=== PATIENT | female | born 1955 | race Caucasian/White ===

== ENCOUNTER → 2018-04-05 10:45 | Outpatient (CLI) | payer OTHER, SELFPAY ==
--- NOTE | 2018-04-05 | DI.MG.S_ITS ---
BILATERAL DIGITAL SCREENING MAMMOGRAM 3D/2D WITH CAD: 04/05/2018 CLINICAL: Routine screening. Comparison is made to exams dated: 10/20/2016 mammogram, 04/14/2016 mammogram, and 03/31/2016 mammogram - [facility]. The tissue of both breasts is predominantly fatty. Current study was also evaluated with a Computer Aided Detection (CAD) system. No significant masses, calcifications, or other findings are seen in either breast. There has been no significant interval change. IMPRESSION: NEGATIVE There is no mammographic evidence of malignancy. A 1 year screening mammogram is recommended. This exam was interpreted at Station ID: [id number]. NOTE: For mammograms, a report in lay terms will be sent to the patient. Approximately 15% of breast malignancies will not be visualized mammographically. In the management of a palpable breast mass, a negative mammogram must not discourage biopsy of a clinically suspicious lesion. Electronically Signed By: Emily fritz/ishan:04/05/2018 13:30:56 letter sent: Normal Exam ACR BI-RADS Category 1: Negative [id number]
== END ==
PROVIDERS: Visit Provider Internal Medicine
DX: Z12.31 Encounter for screening mammogram for malignant neoplasm of breast (principal)
CPT/HCPCS: 77063; 77067

== ENCOUNTER → 2018-07-30 13:01 | Outpatient (CLI) | payer OTHER, MEDICAID, SELFPAY ==
[2018-07-30 13:13] LABS: RBC Urine None Seen (0-5/HPF)
[2018-07-30 14:25] LABS: Add Manual Diff / Slide Review NO; Basophils Percent Auto 0.3 % (0-2); Eosinophils Percent Auto 1.8 % (2-4); Hematocrit 44.5 % (36-46); Lymphocytes Percent Auto 23.7 % (25-40); Mean Corpuscular HGB Conc 33.6 % (30-36); Mean Corpuscular Hemoglobin 30.2 PG (26-34); Mean Corpuscular Volume 89.9 fL (80-100); Monocytes Percent Auto 5.2 % (3-14); Neutrophils Absolute Auto 5400 /uL (3000-5900); Platelet Count 308 X10^3/uL (150-400); Red Blood Cell Count 4.95 X10^6/uL (4.0-5.2); Red Cell Distribution Width 13.2 % (11.6-14.8); White Blood Cell Count 7.8 X10^3/uL (4.5-11.0)
[2018-07-30 14:48] LABS: Hemoglobin A1C% w Est Avg Glu 5.3 % (4.0-6.0)
[2018-07-30 15:06] LABS: Appearance Urine UA CLEAR; Bilirubin Urine UA NEGATIVE (NEGATIVE); Color Urine UA YELLOW; Glucose Urine UA NEGATIVE (Normal); Ketones Urine UA TRACE (NEGATIVE); Leukocyte Esterase Urine UA NEGATIVE (NEGATIVE); Nitrite Urine UA POSITIVE (Negative); Occult Blood Urine UA NEGATIVE (Negative); Protein Urine UA TRACE (Negative); Specific Gravity Urine UA >=1.030 (1.000-1.035); Urobilinogen Urine UA 0.2 E.U./dL (0.2)
[2018-07-30 15:33] LABS: BUN Creatinine Ratio 28.6 (6-22); Blood Urea Nitrogen 20 mg/dL (7-17); Calcium 9.5 mg/dL (8.4-10.2); Carbon Dioxide 25 mmol/L (22-32); Chloride 103 mmol/L (98-107); Estimated Glomerular Filt Rate > 60.0 mL/min (>60); Glucose 108 mg/dL (80-110); HEMOLYSIS < 15 (0-50); Sodium 144 mmol/L (137-145)
[2018-07-30 15:36] LABS: Transferrin 224 mg/dL (206-381)
[2018-07-30 15:51] LABS: Squamous Epithelial Cell Urine 5-10 /HPF; WBC Urine 1-5/HPF (0-5/HPF)
[2018-07-30 15:52] LABS: Bacteria Urine Many (>30); Culture Indicated Urine Cult Not Indicated; Hyaline Casts Urine 0-1/LPF
== END ==
PROVIDERS: Family Provider Internal Medicine; Visit Provider Orthopaedic Surgery
DX: Z01.818 Encounter for other preprocedural examination (principal); M25.561 Pain in right knee; Z01.812 Encounter for preprocedural laboratory examination; D64.9 Anemia, unspecified; R73.9 Hyperglycemia, unspecified; N39.0 Urinary tract infection, site not specified
CPT/HCPCS: 36415; 80048; 81001; 83036; 84466; 85025; 93005; 93010

== ENCOUNTER → 2018-08-11 09:46 | Outpatient (CLI) | payer OTHER, MEDICAID, SELFPAY ==
[2018-08-11 09:56] LABS: Bacteria Urine None Seen; RBC Urine None Seen (0-5/HPF)
[2018-08-11 10:50] LABS: Appearance Urine UA CLEAR; Bilirubin Urine UA NEGATIVE (NEGATIVE); Color Urine UA YELLOW; Glucose Urine UA NEGATIVE (Normal); Ketones Urine UA NEGATIVE (NEGATIVE); Leukocyte Esterase Urine UA TRACE (NEGATIVE); Nitrite Urine UA NEGATIVE (Negative); Occult Blood Urine UA NEGATIVE (Negative); Protein Urine UA NEGATIVE (Negative); Specific Gravity Urine UA <=1.005 (1.000-1.035); Urobilinogen Urine UA 0.2 E.U./dL (0.2); pH Urine UA 6.5 (4.5-8.0)
[2018-08-11 11:02] LABS: Culture Indicated Urine Cult Not Indicated; Squamous Epithelial Cell Urine 0-1 /HPF; WBC Urine 0-1/HPF (0-5/HPF)
== END ==
PROVIDERS: Family Provider Internal Medicine; PCP Internal Medicine; Visit Provider Physician Assistant Surgical
DX: N39.0 Urinary tract infection, site not specified (principal)
CPT/HCPCS: 81001

== ENCOUNTER 2018-08-24 13:36 | Observation (INO) | payer OTHER, MEDICAID, SELFPAY ==
[2018-08-10 09:54] VITALS: BMI 38.2
[2018-08-23] VITALS (16 sets, daily range): BP systolic 117–146; BP diastolic 68–95; PULSE 44–89; RESP 11–21; TEMP 36.1–36.9; O2SAT 82–98; BMI 38.2
--- NOTE | 2018-08-23 06:00 | DI.RAD.S_ITS ---
PROCEDURE: XR KNEE RT 1TO2V INDICATIONS: total right knee TECHNIQUE: 2 view(s) of the knee acquired. COMPARISON: None. FINDINGS: Bones: Patient is status post knee joint arthroplasty. Hardware components are in expected positions. Visualized bony structures are intact. Soft tissues: Overlying postoperative changes are noted. IMPRESSION: Post right total knee arthroplasty changes with anatomic right knee alignment. Dictated by: Fabian Herron M.D. on 08/23/2018 at 16:12 Approved by: Fabian Herron M.D. on 08/23/2018 at 16:12
[2018-08-23] MEDS: CELECOXIB 200 MG CAPSULE PO (11:00)
[2018-08-23] MEDS: PREGABALIN 75 MG CAPSULE PO (11:01)
[2018-08-23] MEDS: LACTATED RINGERS 1,000 ML 42 ML IV ×2 (11:30→14:08)
--- NOTE | 2018-08-23 12:29 | PM.PREOP ---
Pre-operative Note Interval Note Pre-op Check: Yes History & Physical Reviewed by Physician and Yes Exam Performed Changes: No
[2018-08-23] MEDS: MIDAZOLAM 2 MG/2 ML VIAL IV (12:43)
[2018-08-23] MEDS: fentaNYL 100 MCG/2 ML INJ 50 MCG IV (12:43)
--- NOTE | 2018-08-23 12:59 | SUR.PREOP ---
Block start time [1246 ] . Monitoring initiated and maintained throughout procedure. Oxygen and medications given per anesthesiologist instructions. Patient remained stable throughout procedure, no adverse reactions noted. Block end time [].1251
[2018-08-23] MEDS: CEFAZOLIN VIAL 3 GM in SODIUM CHLORIDE 0.9% 100 ML 200 ML IV (13:30)
--- NOTE | 2018-08-23 13:46 | SUR.OPER ---
Supine on padded OR bed. Pillow under head, arms secured on padded armboards <90 degree abduction. Safety belt across torso. Non-operative leg secured with tape over blanket over lower leg. Operative leg secured in [place].
[2018-08-23] MEDS: BUPIVACAINE 0.25% W/ EPI VIAL 60 ML INJ (13:52)
[2018-08-23] MEDS: BUPIVACAINE LIPOSOME 266 MG/20 ML VIAL INJ (13:52)
[2018-08-23] MEDS: MORPHINE 4 MG/ML INJ INJ (13:55)
[2018-08-23] MEDS: TRANEXAMIC ACID 1,000 MG VIAL 1000 MG INJ ×2 (13:56→14:56)
--- NOTE | 2018-08-23 15:12 | P.OP_ITS ---
Operative Date/Time/Diagnoses Date of procedure: 08/23/18 Time of procedure: 15:00 Pre-op diagnosis: Right knee osteoarthritis Post-op diagnosis: same Procedure & Clinicians Procedure: Right total knee replacement Same procedure as scheduled: Yes Indications: The patient has had progressively worsening right knee pain with radiographic changes consistent with arthritis. Non-operative management has failed and the patient has requested total knee replacement. The risks, benefits and alternatives to surgery were discussed with the patient prior to proceeding. Risks discussed included, but were not limited to, failure to relieve pain, stiffness, infection, nerve damage, deep venous thrombosis, pulmonary embolism, stroke, coma, heart attack, permanent paralysis and , as well as the potential need for eventual revision of the prosthetic. Surgeon: Sidney Higgins News Internship: Sharon Bloom Click Yes if Unassisted: No Anesthesia Type: General, Peripheral nerve block and Local Operative Notes Findings: Severe tricompartmental osteoarthritis with large osteophytes Closure Type: primary Specimen(s): none sent Implants & Drains: Implants used in this procedure were manufactured by the [employer] and [employer] and included the BCS II Journey total knee replacement with a size 5 right Oxinium femur, 5 right non porous tibial base plate, 13 mm cross-linked polyethylene BCS II tibial insert and a 35 mm oval Linda II patella. Applied: implant(s) Estimated Blood Loss (mL): 100 Blood products transfused: none Tourniquet time (min): 60 Procedure in detail: The patient was seen in the pre-operative area, where the patient identified the right knee as the operative site and this was marked with my initials. The patient received pre-operative antibiotics, and was taken to the operating room and placed on the operative table in the supine position. After satisfactory anesthesia, a pharmacy cashier out was performed. The right leg was encircled with a tourniquet about the proximal thigh, and the leg was prepared from the toes to the tourniquet with ChloroPrep in the usual fashion and draped through sterile drapes. The leg was elevated and exsanguinated with Eschmark bandage and the tourniquet inflated to 250 mmHg pressure. The knee was approached through an approximately 18 cm incision centered over the patella and carried into the knee through a medial parapatellar arthrotomy. The anterior osteophytes and soft tissues were removed. The rotational landmarks of [place]'s line and the transepicondylar axis were marked on the femur with electrocautery, and intramedullary guide holes for the femur and tibia were created. The distal femoral cut was made in 6 degrees of valgus using the intramedullary guide at the +2 cut setting due to a pre-existing flexion contracture. The proximal tibial cut was then made using the intramedullary guide, taking 9 mm of bone off the less involved side. The extension gap was checked and the rotation of the femoral component confirmed with the gap balancing system. The anterior, posterior and chamfer cuts were then made. The posterior osteophytes and soft tissues were then removed. The posterior capsule was injected with part of a mixture of 50 ml 0.25% Marcaine mixed with 20 ml Exparel and 4 mg of morphine for post-operative pain control. The remainder of this mixture was injected into the capsule and subcutaneous tissues during cement curing. The tibia was prepared with the rotation set by an extra medullary guide. Trial tibial and femoral components were then placed and the intercondylar notch cut through the femoral trial. Range of motion was 0-135 degrees, with good stability throughout the range. The patella was then cut to accommodate the patellar prosthetic. There was no need for a lateral release. The trials were then removed, and the femoral hole plugged with a bone plug. The bone was prepared with pulsatile lavage, and dried with a sponge. Cement was applied and the final prosthetics placed. Excess cement was removed during and after cement curing. After confirming there was no extruded cement posteriorly, the final tibial insert was placed. The knee was copiously irrigated and the tourniquet deflated. Hemostasis was obtained. The capsule was closed with interrupted # 2 polyester suture. The subcutaneous layer was closed with 3-0 Vicryl, and the skin with a running 3-0 V-Lock suture and SteriStrips. An Aquacel Ag dressing was applied and the patient was taken to recovery having tolerated the procedure well. Complications: none Condition: stable Disposition: PACU Plan for aftercare: The patient will be maintained on a standard total knee replacement protocol with weight bearing as tolerated. The patient will receive aspirin and sequential compression devices for DVT prophylaxis. The patient will be discharged home when safe for the home environment.
[2018-08-23] MEDS: HYDROMORPHONE 2 MG INJ 0.5 MG IV ×2 (15:26→15:40)
--- NOTE | 2018-08-23 16:03 | SUR.PHASEI ---
Pt reports pain 3/10 in rt knee. Drowsy, dozing frequently. Sats drop to mid 80s on 2lnc, increase to 95-97% 2lnc with deep breaths.
--- NOTE | 2018-08-23 16:23 | SUR.PHASEI ---
Report called to Anel
--- NOTE | 2018-08-23 16:46 | SUR.PHASEI ---
Pt transferred to the floor with pulse ox. Report given to Shirley. VS stable. Roslyn CDI. NV check wnl. IV saline locked, site wnl. Belongings bag and glasses/case with patient.
[2018-08-23] MEDS: LACTATED RINGERS 1,000 ML 125 ML IV (16:48)
--- NOTE | 2018-08-23 17:11 | PC.NURSE ---
1633 - Patient admitted to room 204 from PACU. Brought to room in bed by PACU nurses. Alert and oriented with pleasant affect. States pain to right knee is 2/10. Able to move all extremities. Jae wrap and aquacel dressing to right knee C/D/I. Oriented to room and call light, Call light within reach.
[2018-08-23] MEDS: HYDROCODONE/ACET 5/325 TABLET 2 TAB PO ×2 (18:03→22:33)
[2018-08-23] MEDS: CEFAZOLIN 2 GM/100 ML FROZ.PIGGY IV (21:05)
[2018-08-23] MEDS: ACETAMINOPHEN 325 MG TABLET 975 MG PO (21:07)
[2018-08-23] MEDS: DOCUSATE 100 MG CAPSULE PO (21:07)
[2018-08-23] MEDS: ASPIRIN EC 81 MG TABLET PO (21:07)
[2018-08-24] MEDS: LACTATED RINGERS 1,000 ML 125 ML IV (01:22)
[2018-08-24] MEDS: HYDROCODONE/ACET 5/325 TABLET 2 TAB PO ×4 (02:31→21:10)
[2018-08-24] MEDS: CEFAZOLIN 2 GM/100 ML FROZ.PIGGY IV (05:47)
[2018-08-24 05:55] VITALS: BP 144/74; PULSE 85; RESP 18; TEMP 36.6; O2SAT 98
[2018-08-24 06:49] LABS: Hematocrit 37.4 % (36-46); Hemoglobin 12.5 g/dL (12.0-16.0)
[2018-08-24 07:35] VITALS: BP 128/89; PULSE 76; RESP 16; TEMP 36.8; O2SAT 98
[2018-08-24 07:44] VITALS: O2SAT 89; O2SAT 98
[2018-08-24] MEDS: MELOXICAM 7.5 MG TABLET 15 MG PO (08:32)
[2018-08-24] MEDS: METOPROLOL ER 50 MG TABLET PO (08:32)
[2018-08-24] MEDS: SERTRALINE 25 MG TABLET PO (08:32)
[2018-08-24] MEDS: DOCUSATE 100 MG CAPSULE PO ×2 (08:32→20:13)
[2018-08-24] MEDS: ASPIRIN EC 81 MG TABLET PO ×2 (08:32→20:15)
--- NOTE | 2018-08-24 08:51 | CM.DANOTE ---
DCP: Case received, EMR reviewed and met with patient. Introduced self and role. DCP template completed with information currently available. Patient is a 62 year old female who admitted yesterday to the care of the hospitalist team, Dr. Higgins. PCP: Dr. Tovar. Payer: confirmed: [facility] [employer]. Patient came to hospital for surgical procedure, Right Total Knee Arthroplasty. Patient has had history of right knee pain. Met with patient in room. Confirmed that she is not , lives [facility] her [facility]. Her daughter lives in [place], and has 7 month old baby, and has a son in [place] with children as well. Stated that she has been independent, and has not had to use a walker or cane. Discussed therapy, and patient if thinking that home health may suit her better, for she stated that it may be difficult for her daughter to take her to outpatient therapy. Patient has not yet been up to work with P.T. P: DCP to continue to follow. Will consult with physical therapy team for best plan for patient. If home health is appropriate, will have to check agencies that will accept her insurance. Marisa Bliss RN/Senior Behavioral Scientist
--- NOTE | 2018-08-24 09:46 | PM.PNPO.1 ---
Subjective Date Patient Seen: 08/24/18 Time Patient Seen: 09:46 Interval history: The patient reports difficulty with pain control. She has satisfactory pain control with Pe Ell but it does not seem to be lasting long enough. She is unable to tolerate oxycodone. She also does not want to try hydromorphone. Exam Vital Signs (past 8 hours): - 08/24/18 05:55 08/24/18 07:35 08/24/18 07:44 Temperature 97.8 F 98.3 F Pulse Rate 85 76 Respiratory Rate 18 16 Blood Pressure 144/74 H 128/89 Pulse Oximetry 98 98 98 Oxygen Delivery Method Room Air Oxygen Flow Rate 3 Narrative Exam Narrative: Right knee wound is dressed with no drainage on the bandage. Calf is soft. Light touch and motion are intact in the right lower extremity. Objective Labs Result Diagrams: 08/24/18 06:32 Labs: Laboratory Results - last 24 hr 08/24/18 06:32 Hgb 12.5 Hct 37.4 Assessment & Plan Post-op Postoperative Procedures Operation Date: 08/23/18 12:30 Actual Procedures Side Surgeon p Total Knee Arthroplasty Right Sidney Higgins MD Postoperative day: 1 Postoperative status: doing well, marginal pain control and anemia Postoperative status narrative: The patient has marginal pain control on Pe Ell. She is very sensitive to the hallucinatory effects of narcotics and does not wish to try anything stronger. We discussed the use of supplementary medications including Tylenol and anti-inflammatories. She has not made and enough progress with therapy to be ready for discharge today. She has a mild, anticipated post hemorrhagic anemia. Postoperative plan: routine post-op care and ambulate Time Spent With Patient less than 15 minutes
--- NOTE | 2018-08-24 09:50 | P.PN_ITS ---
Subjective Date Patient Seen: 08/24/18 Time Patient Seen: 09:46 Interval history: The patient reports difficulty with pain control. She has satisfactory pain control with Niland but it does not seem to be lasting long enough. She is unable to tolerate oxycodone. She also does not want to try hydromorphone. Exam Vital Signs (past 8 hours): - 08/24/18 05:55 08/24/18 07:35 08/24/18 07:44 Temperature 97.8 F 98.3 F Pulse Rate 85 76 Respiratory Rate 18 16 Blood Pressure 144/74 H 128/89 Pulse Oximetry 98 98 98 Oxygen Delivery Method Room Air Oxygen Flow Rate 3 Narrative Exam Narrative: Right knee wound is dressed with no drainage on the bandage. Calf is soft. Light touch and motion are intact in the right lower extremity. Objective Labs Result Diagrams: 08/24/18 06:32 Labs: Laboratory Results - last 24 hr 08/24/18 06:32 Hgb 12.5 Hct 37.4 Assessment & Plan Post-op Postoperative Procedures Operation Date: 08/23/18 12:30 Actual Procedures Side Surgeon p Total Knee Arthroplasty Right Sidney Higgins MD Postoperative day: 1 Postoperative status: doing well, marginal pain control and anemia Postoperative status narrative: The patient has marginal pain control on Niland. She is very sensitive to the hallucinatory effects of narcotics and does not wish to try anything stronger. We discussed the use of supplementary medications including Tylenol and anti-inflammatories. She has not made and enough progress with therapy to be ready for discharge today. She has a mild, anticipated post hemorrhagic anemia. Postoperative plan: routine post-op care and ambulate Time Spent With Patient less than 15 minutes
--- NOTE | 2018-08-24 10:00 | PT.IIE ---
Current Diagnoses Unilateral primary osteoarthritis, right knee (08/23/18) Surgery Performed Operation Date: 08/23/18 12:30 Actual Procedures p Total Knee Arthroplasty(Right) - Sidney Higgins MD Surgical History (Last Updated 08/10/18 @ 10:20 by Jonna Brown, RN) H/O removal of cyst (Acute) History of section (Acute ~1986) History of surgical removal of pilonidal cyst (Acute) History of tonsillectomy and adenoidectomy (Acute) Hx of cholecystectomy (Acute) Hx of umbilical hernia repair (Acute) S/P left rotator cuff repair (Acute) Medical History (Last Updated 08/10/18 @ 10:33 by Jonna Brown RN) Chronic back pain (Acute) Depression (Acute) Easy bruisability (Acute) HTN (hypertension) (Acute) Hamstring injury (Acute) History of hysterectomy (Acute ~06/1994) Numbness and tingling (Acute) Osteoarthritis (Acute) Spinal stenosis (Acute) Physical Therapy Inpatient Evaluation/Re-Eval M1 PT/OT-IP Prior Functional Status Start: 08/24/18 10:16 Freq: NEEDED Status: Active Protocol: Document 08/24/18 12:14 [facility] (Rec: 08/24/18 12:32 [facility] [id number]) Medical Review Prior Functional Status Medical History Reviewed Yes Diet/Fluid Consistency Regular Communication WNL Mobility and Gait no AD but painful and had to use grab bars to get up/down from toilet Activities of Daily Living and IADL's [facility] ADLs Social History Household Members family Living Arrangements House Number of Floors (Floors) One Floor Number of Stairs To Enter/Railing? no KIM Home Environment High Toilet Tub/Shower Home Equipment Front Wheel Walker Straight Cane Grab Bars Near Toilet Grab Bars In Shower Additional Social History Comment Pt has walk in tub that has a built in bench. Pt lives with 14 year old granddgt who will help with meals. Pt's dgt will being staying with her for 1 week. M2 PT-IP Current Condition Start: 08/24/18 10:16 Freq: NEEDED Status: Active Protocol: Document 08/24/18 16:00 [facility] (Rec: 08/24/18 12:32 [facility] [id number]) Physical Therapy Current Condition Current Condition Evaluation Date 08/24/18 Treatment Diagnosis R TKA Weight Bearing Status Weight Bearing Status Weight Bear as Tolerated M3 PT-IP Subjective Start: 08/24/18 10:16 Freq: NEEDED Status: Active Protocol: Document 08/24/18 16:00 [facility] (Rec: 08/24/18 12:32 [facility] [id number]) Subjective Physical Therapy Visit Type Type Initial Evaluation Visit Start Time 09:20 Visit Stop Time 10:05 Total Visit Minutes 45 Number of CLINICAL EDUCATOR Visits 0 Physical Therapy Visit Comments Patient Comments Pt plans to go home and thinks she would be ready tomorrow. Therapy Pain Assessment Pain When Pain Assessed At Rest Pain Present Pain Present Pain Reported M4 PT-IP Mobility and Gait Start: 08/24/18 10:16 Freq: NEEDED Status: Active Protocol: Document 08/24/18 16:00 [facility] (Rec: 08/24/18 12:32 [facility] [id number]) PT-Bed Mobility Assessment Rolling Type of Rolling Log Rolling Level of Assist Contact Guard Assistance Supine to Sit Supine to Sit Minimal Assistance Bedrails Scooting Scooting to Edge of Bed Standby Assistance PT-Transfer Assessment Sit to and From Stand Sit to and from Stand Contact Guard Assistance Equipment Transfer Assistive Device Gait Belt Front Wheeled Walker Orthotic/Prosthetic Devices or Brace: No Transfers Transfer Destination Bedside Commode Transfer Technique Stand Step Pivot Transfer Ability Level of Assist Contact Guard Assistance Comments Mobility Comments Pt stood to transfer to commode then ambulated before returning to chair. Gait Assessment Gait Gait Assistance Required: Contact Guard Assist Distance (Feet) 10 Able to Maintain Weight Bearing Status Yes During Gait Assistive Devices Assistive Device Gait Belt Front Wheeled Walker Orthotic/Prosthetic Devices or Brace: No Gait Deviations General Gait Pattern Decreased Stride Length Flexed Trunk Step-to Gait Factors Limiting Gait Function Factors Limiting Gait Function Decreased Strength Pain Comments Gait Comments Pt able to ambulate small distance with step to gait before sitting in chair d/t pain. PT-Balance Assessment Sitting Balance and Reactions Static Sitting Balance Ability Good Dynamic Sitting Balance Ability Good Standing Balance and Reactions Static Standing Balance Ability Fair Dynamic Standing Balance Ability Fair M5 PT-IP Objective Assessments Start: 08/24/18 10:16 Freq: NEEDED Status: Active Protocol: Document 08/24/18 16:00 [facility] (Rec: 08/24/18 12:32 [facility] [id number]) Orientation Orientation/Cognition Level of Alertness Alert Gross Range of Motion Lower Extremity ROM Assessment Right Impaired Strength Lower Extremity Strength Assessment Right Impaired M6 PT-IP Treatment Start: 08/24/18 10:16 Freq: NEEDED Status: Active Protocol: Document 08/24/18 16:00 [facility] (Rec: 08/24/18 12:32 [facility] [id number]) Physical Therapy Treatment Exercises Exercises Ankle Pumps Education Education Provided Weight Bearing Status Post-Op Packet Safety M7 PT-IP Assessment and Plan Start: 08/24/18 10:16 Freq: NEEDED Status: Active Protocol: Document 08/24/18 16:00 [facility] (Rec: 08/24/18 12:32 [facility] [id number]) PT Summary Assessment and Plan Potential Rehabilitation Potential Good Status of Condition at Evaluation Evolving Summary Impairments Pain ROM Strength Balance Bed Mobility Transfers Gait Activity Tolerance Assessment Summary Pt is 1 day s/p R TKA with motivation to get home tomorrow. She has prepared well with OP PT set up, equipment at home and help at home. She was educated on home set up, moving frequently at home and overall progression. She is likely to cont to improve with PT to be able to return home once stable and safe. Goals Bed Mobility Goal Independent Transfer Goal Standby Assistance Gait Goal Standby Assistance Gait Distance 150 Other Goals STG-indep with HEP in 1 day Days to Meet Goals 3 Frequency of Treatment Frequency Of Treatment Twice a Day Treatment Plan Physical Therapy Treatment Plan Bed Mobility Training Transfer Training Gait Training Therapeutic Exercise Balance Retraining Discharge Planning Neuromuscular Re-ed Manual Therapy Other Recommendations and Next Treatment TKA exercises, progress gait Focus Recommendations To Nursing Amount of Assist Needed 1 Person Assist Discharge Recommendations PT Discharge Recommendations Home with Assistance Outpatient PT
[2018-08-24] MEDS: KETOROLAC 15 MG/ML VIAL IV ×3 (10:59→20:15)
[2018-08-24] MEDS: HYDROCODONE/ACET 10/325 TABLET 2 TAB PO (11:00)
[2018-08-24 11:41] VITALS: BP 112/53; PULSE 66; RESP 16; TEMP 37.2; O2SAT 96
[2018-08-24 15:27] VITALS: BP 118/57; PULSE 67; RESP 21; TEMP 37.1; O2SAT 98
--- NOTE | 2018-08-24 16:08 | PT.IPTN ---
Current Diagnoses Unilateral primary osteoarthritis, right knee (08/23/18) Surgery Performed Operation Date: 08/23/18 12:30 Actual Procedures p Total Knee Arthroplasty(Right) - Sideny Higgins MD Physical Therapy Treatment Note M2 PT-IP Current Condition Start: 08/24/18 10:16 Freq: NEEDED Status: Active Protocol: Document 08/24/18 12:14 [facility] (Rec: 08/24/18 12:32 [facility] [id number]) Physical Therapy Current Condition Current Condition Evaluation Date 08/24/18 Treatment Diagnosis R TKA Weight Bearing Status Weight Bearing Status Weight Bear as Tolerated M3 PT-IP Subjective Start: 08/24/18 10:16 Freq: NEEDED Status: Active Protocol: Document 08/24/18 15:59 [facility] (Rec: 08/24/18 16:08 [facility] [id number]) Subjective Physical Therapy Visit Type Type Treatment Note Visit Start Time 15:19 Visit Stop Time 15:45 Total Visit Minutes 26 Number of COMMUNITY SERVICE TECHNICIAN Visits 1 Physical Therapy Visit Comments Patient Comments Pt pain managed well this afternoon, pt reports. Plan to d/c tomorrow. Patient Goals D/C home tomorrow Therapy Pain Assessment Pain When Pain Assessed During Mobility Pain Present Pain Present Pain Reported Location Right Knee Intensity 2 Scale Used Numeric (1 - 10) Pain Management Techniques Apply Cold Re-positioning Timing of Activity with Medications M4 PT-IP Mobility and Gait Start: 08/24/18 10:16 Freq: NEEDED Status: Active Protocol: Document 08/24/18 15:59 [facility] (Rec: 08/24/18 16:08 [facility] [id number]) PT-Bed Mobility Assessment Scooting Scooting to Edge of Bed Standby Assistance PT-Transfer Assessment Sit to and From Stand Sit to and from Stand Standby Assistance Equipment Transfer Assistive Device Gait Belt Front Wheeled Walker Orthotic/Prosthetic Devices or Brace: No Transfers Transfer Destination Bed Chair Transfer Technique Stand Step Pivot Transfer Ability Level of Assist Standby Assistance Comments Mobility Comments Pt SBA with sit to stands from low chair and EOB. Stand pivot txs with FWW and SBA, min cues for FWW use. Gait Assessment Gait Gait Assistance Required: Contact Guard Assist Distance (Feet) 120 Able to Maintain Weight Bearing Status Yes During Gait Assistive Devices Assistive Device Gait Belt Front Wheeled Walker Orthotic/Prosthetic Devices or Brace: No Gait Deviations General Gait Pattern Decreased Stride Length Flexed Trunk Step-to Gait Factors Limiting Gait Function Factors Limiting Gait Function Decreased Activity Tolerance Decreased Strength Limited Range of Motion Pain Comments Gait Comments Pt able to increase WBing through RLE and increase step length with cues. Tends to wB heavily through UEs but able to correct with cues. Stair Climbing Assessment Comments Stair Climbing Comments P does not hae stairs to enter home or inside of home. M5 PT-IP Objective Assessments Start: 08/24/18 10:16 Freq: NEEDED Status: Active Protocol: Document 08/24/18 12:14 [facility] (Rec: 08/24/18 12:32 [facility] [id number]) Orientation Orientation/Cognition Level of Alertness Alert Gross Range of Motion Lower Extremity ROM Assessment Right Impaired Strength Lower Extremity Strength Assessment Right Impaired M6 PT-IP Treatment Start: 08/24/18 10:16 Freq: NEEDED Status: Active Protocol: Document 08/24/18 15:59 [facility] (Rec: 08/24/18 16:08 [facility] [id number]) Physical Therapy Treatment Exercises Exercises Ankle Pumps Gluteal Sets Quad Sets Seated Knee Flexion/Extension Education Education Provided Weight Bearing Status Post-Op Packet Safety Equipment Issued Equipment Type and Company Pt has FWW and SPC at home, may need elevated toilet seat as she is 8'tall and is using elevated toilet seat here.Does have grab bars in bathroom. M7 PT-IP Assessment and Plan Start: 08/24/18 10:16 Freq: NEEDED Status: Active Protocol: Document 08/24/18 15:59 [facility] (Rec: 08/24/18 16:08 [facility] [id number]) PT Summary Assessment and Plan Potential Rehabilitation Potential Good Status of Condition at Evaluation Stable Summary Impairments Pain ROM Strength Balance Bed Mobility Transfers Gait Activity Tolerance Assessment Summary Reviewed post-op packet and patient understands exercises and importance of frequent movement. Pt has equipment needed and help at home from daughter and granddaughter. Frequency of Treatment Frequency Of Treatment Twice a Day Recommendations To Nursing Amount of Assist Needed 1 Person Assist Discharge Recommendations PT Discharge Recommendations Home Home with Assistance Home Health
--- NOTE | 2018-08-24 17:59 | PC.NURSE ---
Addendum entered by Che Jones R.N. 08/24/18 21:39: Pt had relatively uneventful evening. Med at 2100 for discomfort w/good relief. Condtion remains essentially unchanged. Stable post op course. Call light w/in reach. Continue w/plan of care. Original Note: Pt sitting in chair, Dsg to right knee CDI. Lungs clear, SpO2 97% RA Med at 1600 w/ [place] w/ fair relief. Hl in right hand intact/patent. Stable post op course. Call light w/in reach.
[2018-08-24 19:42] VITALS: BP 124/64; PULSE 67; RESP 19; TEMP 36.6; O2SAT 92
[2018-08-24] MEDS: ACETAMINOPHEN 325 MG TABLET 975 MG PO (20:13)
[2018-08-25 00:26] VITALS: BP 115/67; PULSE 77; RESP 16; TEMP 36.7; O2SAT 98
[2018-08-25] MEDS: HYDROCODONE/ACET 5/325 TABLET 2 TAB PO ×3 (01:13→12:58)
[2018-08-25] MEDS: KETOROLAC 15 MG/ML VIAL IV ×2 (03:30→07:53)
[2018-08-25 05:55] VITALS: BP 130/70; PULSE 86; RESP 16; TEMP 36.8; O2SAT 96
[2018-08-25] MEDS: DOCUSATE 100 MG CAPSULE PO (07:50)
[2018-08-25] MEDS: ASPIRIN EC 81 MG TABLET PO (07:50)
[2018-08-25 07:54] VITALS: BP 119/54; PULSE 81
[2018-08-25] MEDS: SERTRALINE 25 MG TABLET PO (07:54)
[2018-08-25] MEDS: METOPROLOL ER 50 MG TABLET PO (07:54)
--- NOTE | 2018-08-25 07:55 | PM.DS.1 ---
History of Present Illness Date Patient Seen: 08/25/18 Time Patient Seen: 07:55 Chief complaint: [id number] RIGHT TOTAL KNEE ARTHROPLASTY *OPB* Narrative: Hospital day 3, postop day 2 following right total knee arthroplasty by Dr. Higgins. Patient states she is doing better today. Pain is better controlled with [place] and ketorolac. Did well with physical therapy yesterday. Still has difficulty lifting her right leg actively. Patient is desiring to go home today. She does have physical therapy starting on 08/30/2018. Discharge Providers Primary care physician: Cyndie Tovar MD Consults: 08/23/18 16:37 Consult to Discharge Planning Routine Comment: Consult to Physical Therapy Evaluate & Treat Comment: Physician Instructions: postop TKA protocol Discharge provider: German Street PA-C Discharge Date: 08/25/18 Summary Discharge Diagnosis: Status post right total knee arthroplasty Hospital Course: Patient brought to hospital on 08/23/18 for above noted surgery. She remained stable postoperatively. She did have pain control issues initially and then Ketoralac IV was started which helped a lot. Progressed with physical therapy. Ready for discharge home on postop day 2. Status at Discharge Cognitive/behavioral status at discharge: Alert, oriented no acute distress. Functional status at discharge: uses cane/walker Overall status at discharge: patient is progressing back to baseline Time Spent with Patient Less than 30 minutes Exam Vital Signs (past 8 hours): - 08/25/18 00:26 08/25/18 05:55 08/25/18 07:54 Temperature 98.0 F 98.2 F Pulse Rate 77 86 81 Respiratory Rate 16 16 Blood Pressure 115/67 130/70 119/54 L Pulse Oximetry 98 96 Oxygen Delivery Method Room Air Oxygen Flow Rate 0 Narrative Exam Narrative: Right leg. Aquacel dressing to anterior knee is dry without drainage or inflammation. Mild swelling of the knee and lower leg. Calf is soft and nontender. Good pulses distally. Patient does have quad weakness with extension but able to full extension of knee passively. Objective Labs Result Diagrams: 08/24/18 06:32 Discharge Plan Discharge Plan Patient Disposition: Home Discharge comment: Discharged to home after cleared by physical therapy. Patient to continue knee range of motion and quad strengthening as much as possible prior to PT. Discharge Med Rec/Prescriptions Prescriptions: New acetaminophen 325 mg Tablet 975 mg PO TID Qty: 30 RF: 0 hydrocodone-acetaminophen 5-325 mg Tablet 2 tab PO Q4HR PRN (Reason: Pain, Moderate (4-6)) Qty: 40 RF: 0 aspirin 81 mg Tablet,Delayed Release (Dr/Ec) 81 mg PO BID Qty: 60 RF: 0 ketorolac 10 mg Tablet 10 mg PO Q6HR PRN (Reason: Mild Pain) Qty: 12 RF: 0 Continue metoprolol succinate 50 mg Tablet Extended Release 24 Hr 50 mg PO QAM RF: 0 meloxicam 15 mg Tablet 15 mg PO DAILY RF: 0 sertraline 50 mg Tablet 25 mg PO DAILY RF: 0 tizanidine 4 mg Capsule 4 mg PO TID PRN (Reason: Muscle Spasm) RF: 0 Discontinued hydrocodone-acetaminophen 5-325 mg Tablet 1 - 2 tab PO Q4-6H PRN (Reason: pain) RF: 0 aspirin 81 mg Tablet,Delayed Release (Dr/Ec) 81 mg PO DAILY RF: 0 acetaminophen [Tylenol Extra Strength] 500 mg Tablet 1,000 mg PO QAM RF: 0 Discharge Orders: Discharge (Order); Ordered 08/25/18 Ordered By: German Street Provider Discharge Instructions Diet: Diet as Tolerated Activity: Ambulate as tolerated. Elevate right leg for swelling as much as possible. Right knee ROM as much as possible. Cold/Heat Therapy: Cold pack to knee as needed. Skin/Wound/Dressing Care Dressing: Keep Aquacel dressing in place until postop visit. Visit Report/Discharge Packet Instructions: DI for Knee Replacement Stand Alone Forms: Surgery Discharge Discharge Data Primary Care Provider: Cyndie Tovar Attending Provider: Sidney Higgins
[2018-08-25 08:00] VITALS: BP 119/59; PULSE 81; RESP 16; TEMP 36.9; O2SAT 93
--- NOTE | 2018-08-25 10:36 | CM.DPC ---
DCP: continued: case received, d/c to home order noted and ortho MUNDO Street confirmed in Team Rounds that pt was ready for home and with outpt PT already set up. PT is recommending same. Met with pt in followup. She noted that Edy Acosta had indicated HH might be an option altho no orders for same are in place. Explained that with a planned knee surgery the ortho team recommends going directly to ouptpt and that the therapy would be different than in the home setting. Pt confirms her daughter who lives nearby can drive her to the appts at [facility]. I just wanted to save her the trouble of driving me. She agrees it sounds like she should keep her outpt appt. Her daughter is picking her up today.
--- NOTE | 2018-08-25 10:52 | PC.NURSE ---
Day Shift-Pt A&OX4, able to make needs known using call light. During shift change, pt up in chair at bedside. Reports 1-2/10 aching, tenderness to right knee. Ice pack in place, on/off, pt rotates ice pack. [place] 1 tab per pt request at 0750 with good effect. OOB with SBA using FWW, tolerating well. Pt had moderate soft BM, passing flatus. Right knee aquacel dressing intact with small amount of sang shadowing to mid and lower portion of dressing. Edema surrounding knee and extending to ankle, non-pitting. States cramping behind knee intermittently. Reminded of proper pillow positioning below knee when elevated RLE.
--- NOTE | 2018-08-25 11:43 | PT.IPTN ---
Current Diagnoses Unilateral primary osteoarthritis, right knee (08/24/18) Surgery Performed Operation Date: 08/23/18 12:30 Actual Procedures p Total Knee Arthroplasty(Right) - Sidney Higgins MD Physical Therapy Treatment Note M2 PT-IP Current Condition Start: 08/24/18 10:16 Freq: NEEDED Status: Active Protocol: Document 08/24/18 10:00 [facility] (Rec: 08/24/18 12:32 [facility] [id number]) Physical Therapy Current Condition Current Condition Evaluation Date 08/24/18 Treatment Diagnosis R TKA Weight Bearing Status Weight Bearing Status Weight Bear as Tolerated M3 PT-IP Subjective Start: 08/24/18 10:16 Freq: NEEDED Status: Active Protocol: Document 08/25/18 09:06 [facility] (Rec: 08/25/18 11:43 [facility] [id number]) Subjective Physical Therapy Visit Type Type Treatment Note Visit Start Time 09:06 Visit Stop Time 09:29 Total Visit Minutes 23 Number of DATA REPORTING ANALYST Visits 2 Physical Therapy Visit Comments Patient Comments Pt willing to participate with therapy. Patient Goals d/c home Therapy Pain Assessment Pain When Pain Assessed During Mobility Pain Present Pain Present Pain Reported Location Right Knee Intensity 1 Scale Used Numeric (1 - 10) M4 PT-IP Mobility and Gait Start: 08/24/18 10:16 Freq: NEEDED Status: Active Protocol: Document 08/25/18 09:06 [facility] (Rec: 08/25/18 11:43 [facility] [id number]) PT-Transfer Assessment Sit to and From Stand Sit to and from Stand Standby Assistance Equipment Transfer Assistive Device Gait Belt Front Wheeled Walker Transfers Transfer Destination Chair Toilet Transfer Technique Stand Step Pivot Transfer Ability Level of Assist Standby Assistance Gait Assessment Gait Gait Assistance Required: Standby Assistance Distance (Feet) 120 Able to Maintain Weight Bearing Status Yes During Gait Assistive Devices Assistive Device Gait Belt Front Wheeled Walker Orthotic/Prosthetic Devices or Brace: No Gait Deviations General Gait Pattern Antalgic Decreased Stride Length Factors Limiting Gait Function Factors Limiting Gait Function Decreased Activity Tolerance Decreased Strength Limited Range of Motion Pain Comments Gait Comments Pt ambulating with small step through gait pattern using UE minimally during ambulation. Stair Climbing Assessment Comments Stair Climbing Comments P does not hae stairs to enter home or inside of home. M5 PT-IP Objective Assessments Start: 08/24/18 10:16 Freq: NEEDED Status: Active Protocol: Document 08/24/18 10:00 [facility] (Rec: 08/24/18 12:32 [facility] [id number]) Orientation Orientation/Cognition Level of Alertness Alert Gross Range of Motion Lower Extremity ROM Assessment Right Impaired Strength Lower Extremity Strength Assessment Right Impaired M6 PT-IP Treatment Start: 08/24/18 10:16 Freq: NEEDED Status: Active Protocol: Document 08/25/18 09:06 [facility] (Rec: 08/25/18 11:43 [facility] [id number]) Physical Therapy Treatment Exercises Exercises Ankle Pumps Gluteal Sets Quad Sets Heel Slides Straight Leg Raises Short Arc Quads Education Education Provided Weight Bearing Status Post-Op Packet Safety M7 PT-IP Assessment and Plan Start: 08/24/18 10:16 Freq: NEEDED Status: Active Protocol: Document 08/25/18 09:06 [facility] (Rec: 08/25/18 11:43 [facility] [id number]) PT Summary Assessment and Plan Summary Assessment Summary Pt able to ambulate with no increase of pain. Pt able to perform ther ex with minor assist with SLR and SAQ. Pt able to ambulate household distances safely and has no stairs to enter her home. Pt seems able to d/c home with assist when medically stable. Goals Bed Mobility Goal Independent Transfer Goal Standby Assistance Gait Goal Standby Assistance Gait Distance 150 Other Goals STG-indep with HEP in 1 day Frequency of Treatment Frequency Of Treatment Twice a Day Recommendations To Nursing Amount of Assist Needed 1 Person Assist Discharge Recommendations PT Discharge Recommendations Home Home with Assistance Home Health
[2018-08-25 13:01] VITALS: BP 111/56; PULSE 81
--- NOTE | 2018-08-25 14:13 | PC.NURSE ---
1 tab [place] given at 1300 in anticipation of pt going home for pain management. Effective pain control. pt's daughter Sharon present at bedside and discharge summary reviewed. Pt states she already has her 1st follow up appointment at Dr. Higgins office 08/31/18. Pt aware to confirm. No voiced concerns. PIV removed. Pt states is ready for discharge. Pt left unit in no distress via wheelchair at 1413 with all belongings and daughter at side.
== END 2018-08-25 14:13 | disposition home or self-care (01) ==
LOC: OR 08-25 09:53
PROVIDERS: Admitting Provider Orthopaedic Surgery; Family Provider Internal Medicine; PCP Internal Medicine; Visit Provider Orthopaedic Surgery
PROC: 0SRC0JZ Replacement of Right Knee Joint with Synthetic Substitute, Open Approach (ICD-10-PCS; CPT 27447; principal; 2018-08-23 12:30)
DX: M17.11 Unilateral primary osteoarthritis, right knee (principal); G89.18 Other acute postprocedural pain; E66.01 Morbid (severe) obesity due to excess calories; I10 Essential (primary) hypertension; Z68.38 Body mass index [BMI] 38.0-38.9, adult
CPT/HCPCS: 27447; 36415; 64447; 73560; 85014; 85018; 94760; 97110; 97116; 97162; 97530; C1776; G0378; C9290; J0690; J1100; J1170; J1885; J2250; J2270; J2405; J2704; J3010

== ENCOUNTER 2018-11-22 10:30 | Outpatient (RCR) | payer OTHER, MEDICAID, SELFPAY ==
--- NOTE | 2018-08-11 17:20 | PT.OPPOC ---
Current Diagnoses Bilateral primary osteoarthritis of knee (08/11/18) Provider Visit Care Team Role Provider Type Cyndie Tovar MD Family Provider Physician Primary Care Provider Specialty: Internal Medicine Address: [address] [place] [address], [id number] Email: Sidney Higgins MD Attending Provider Physician Specialty: Orthopedic Surgery Address: [address] [place] [address], [id number] Email: [email or web address] Plan Of Care PT-OP-T Assessment and Plan Start: 08/11/18 09:43 Freq: Status: Active Protocol: Document 08/11/18 17:15 EA (Rec: 08/12/18 07:28 EA [id number]) Physical Therapy Assessment Rehab Potential Rehabilitation Potential Good Evaluation Complexity Number of Personal Factors/Comorbidities 1-2 Number of Body Systems Impaired 3 Clinical Presentation at Evaluation Unstable Impairments Impairments Activity Tolerance Functional Activities Gait Pain ROM Soft Tissue Mobility Strength Goals Five Impairment No HEP in place 3 wks post op Farmer [employer] Grain Goal (LTG) Patient will exhibit safe HEP 3 wks post op LTG Duration 09/13/18 Four Impairment Deacresed right knee strength Intermediate Goal (LTG) Patient will increase right knee extensors to functional level LTG Duration 6 wks Three Impairment Decreased ambulation tolerance [employer] Goal (LTG) Patient will ambulate > 10 mins with no AD indep on flat surface LTG Duration 09/16/18 Two Impairment Step to stairs gait pattern [employer] Goal (LTG) Patient will exhibit alternating steps with no AD indep LTG Duration 09/16/18 One Impairment LEFS 33/80 Intermediate Goal (LTG) LEFS results of 50/80 LTG Duration 09/16/18 Assessment Summary Assessment Patient is 62 y/0 F who currently diagnosed with bilateral knees osteoarthritis and is scheduled for R TKA on 08/23/18. Patient today has demonstrates low tolerance to mobility with impaired gait to both flat and uneven surfaces and as well to stairs. She demonstrates good carryover with all post surgery transfers and mobility technique after today's educational session. Patient will be seeing after surgery and therefore follow up assessment and tests is required. She is a good candidate for skilled outpatient PT and likely will reach her goals. Physical Therapy Plan Frequency and Duration Frequency of Treatment 2x/Week Duration of Treatment 8 wks Plan of Care Start Date 08/11/18 Plan of Care End Date 10/06/18 Therapeutic Interventions Therapeutic Interventions Home Exercise Program Joint Mobilizations Manual Therapy Neuromuscular Re-education Patient/Caregiver Education Self-Care/Home Management Soft Tissue Mobilization Taping Therapeutic Activities Therapeutic Exercises Modalities Cold Pack/Ice Massage Electric Stimulation Hot Packs Ultrasound Next Visit Focus/Plan Next Note Type Treatment Note Next Visit Plan Review post surgery TKA HEP Plan of Care Dates Plan of Care Start Date 08/11/18 Plan of Care End Date 10/06/18 Please Sign and Return: I have reviewed this Plan of Care and certify that the skilled therapy services above are required to meet the patient?s needs. Physician Signature Date Printed Name and Credentials Clinical Instructor Signature Printed Name and Credentials
--- NOTE | 2018-08-11 17:20 | PT.OIE ---
Current Diagnoses Bilateral primary osteoarthritis of knee (08/11/18) Past Medical History (Last Updated 08/10/18 @ 10:33 by Jonna Brown RN) Chronic back pain (Acute) Depression (Acute) Easy bruisability (Acute) HTN (hypertension) (Acute) Hamstring injury (Acute) History of hysterectomy (Acute ~06/1994) Numbness and tingling (Acute) Osteoarthritis (Acute) Spinal stenosis (Acute) Past Surgical History (Last Updated 08/10/18 @ 10:20 by Jonna Brown RN) H/O removal of cyst (Acute) History of section (Acute ~1986) History of surgical removal of pilonidal cyst (Acute) History of tonsillectomy and adenoidectomy (Acute) Hx of cholecystectomy (Acute) Hx of umbilical hernia repair (Acute) S/P left rotator cuff repair (Acute) Provider Visit Care Team Role Provider Type Cyndie Tovar MD Family Provider Physician Primary Care Provider Specialty: Internal Medicine Address: [address] [place] [address], [facility] Email: Sidney Higgins MD Attending Provider Physician Specialty: Orthopedic Surgery Address: [address] [place] [address], [id number] Email: [email or web address] Physical Therapy Initial Evaluation PT-OP-A Visit Information Start: 08/11/18 09:43 Freq: Status: Active Protocol: Document 08/11/18 17:15 EA (Rec: 08/12/18 07:28 EA [id number]) Out-Patient Physical Therapy Visit Information Visit Information Visit Type Initial Evaluation Visit Start Time 09:00 Visit Stop Time 09:45 Total Visit Minutes 40 Visit Number 1 Evaluation Information Evaluation Date 08/12/18 PT-OP-B Current Condition Start: 08/11/18 09:43 Freq: Status: Active Protocol: Document 08/11/18 16:00 EA (Rec: 08/12/18 07:28 EA [id number]) Current Condition History of Current Condition Onset Date 2 years ago Current Complaints R TKA pre-op History of Current Condition Present right knee pain complaint started < 2 years ago with no history of injury or previous surgery. Patient mentioned that she had formal PT for a right hamstring injury on October/2017 up to to May 2018 and had 85 % recovered; states right knee pain due to arthritis was not resolved during the PT. Patient reports she is scheduled for a right TKA surgery this coming 08/23/18. Prior Treatments and Tests - May 2018 Formal PT for right hamstring injury. Future Testing and Treatments Planned Right TKA 08/23/18 Treatment Goals Patient/Caregiver Goals Patient wants to be able to get back to previous level after R knee surgery. > able to kneel down and perform gardening > Be able to walk more than a mile without difficulty > Be able to climb alternate without difficulty Prior Functional Status Baseline Function- ADL's Independent Baseline Function- Mobility Independent Baseline Function- Gait Indep with ability to walk more than a mile on any surfaces without difficu Baseline Function- Work/School Work as a medical clinic director Baseline Function- Recreation/Hobbies able to perform gardening, out side distance walking less than 2 years ago. Current Functional Impairments (Reported) Functional Limitations- ADL's Indepedent with moderate difficulty Functional Limitations- Mobility/Gait Indep less than 1/2 a mile without AD with difficulty Functional Limitations- Work/School Laid off at work due to medical reason Functional Limitations- Recreation/ Unable to perform gardening Hobbies and outside walking PT-OP-C Subjective Start: 08/11/18 09:43 Freq: Status: Active Protocol: Document 08/11/18 16:00 EA (Rec: 08/12/18 07:28 EA [id number]) OP-PT Subjective Patient Comments Patient Comments Patient wants to know safe mobility after the surgery and so she would be able to go back to previous level after the surgery. Patient Reported Progress Worse Patient Questionnaires Lower Extremity Functional Scale LEFS Score 33 LEFS Impairment 40 to 59% Impaired (Score 32- 47) OP-PT Pain Assessment Location Right Knee Pain Location Details Mid point of the right knee joint Intensity 6 Scale Used Numeric (1 - 10) Description Aching Frequency Intermittent Pain Aggravating Factors Standing Walking Stair Climbing Lifting Pain Alleviating Factors Medication Rest Home Pain Medication Use Pain Medications Used Yes Pain Behaviors Pain Behaviors Facial Grimacing PT-OP-D Balance Start: 08/11/18 09:43 Freq: Status: Active Protocol: Document 08/11/18 16:00 EA (Rec: 08/12/18 08:39 EA [id number]) Balance Tests Single Limb Standing Single Limb- Right unable Single Limb- Left <5 secs PT-OP-F Manual Assessment Start: 08/11/18 09:43 Freq: Status: Active Protocol: Document 08/11/18 16:00 EA (Rec: 08/12/18 07:28 EA [id number]) Manual Assessments Soft Tissue Assessment Soft Tissue Mobility Assessment Tightness to right quads, hamstring and calf Joint Mobility Assessment Joint Mobility Assessment Hypho mobile to right Tibio femoral joint PT-OP-G Mobility & Gait Start: 08/11/18 09:43 Freq: Status: Active Protocol: Document 08/11/18 16:00 EA (Rec: 08/12/18 07:28 EA [id number]) OP Mobility Evaluation Bed Mobility Rolling Indep without diffcifulty Supine to and from Sit Indep Transfers Sit to Stand Independent but requires arm to support Bed to Chair Transfers indep Car Transfers Indep Functional Movements Lifting and Carrying Indep Squats Indep (requires hand support) OP Gait Assessment Gait Gait Assistance Required: Independent Distance (Feet) 150 Able to Maintain Weight Bearing Status Yes During Gait Assistive Devices Assistive Device None Gait Deviations General Gait Pattern Antalgic Stair Climbing Evaluation Evaluation Level of Assist On Stairs Independent Devices Stair Climbing Assistive Devices None Technique/Endurance Stair Climbing Direction Ascend and Descend Stair Climbing Technique Step to Step Number of Steps Climbed 5 PT-OP-J Posture/Palpation/Skin Start: 08/11/18 09:43 Freq: Status: Active Protocol: Document 08/11/18 16:00 EA (Rec: 08/12/18 08:39 EA [id number]) Palpation Assessment Location One Palpation Location righ quads, hamstring, calf Palpation Findings Soft Tissue Tightness Tenderness PT-OP-K Range of Motion Start: 08/11/18 09:43 Freq: Status: Active Protocol: Document 08/11/18 16:00 EA (Rec: 08/12/18 08:39 EA [id number]) Hip Goniometric Range of Motion Hip Measured in Degrees Right Active Hip ROM WFL Yes Left Active Hip ROM WFL Yes Knee Goniometric Range of Motion Knee Measured in Degrees Right Patient Position Supine Flexion Active (degrees) 95 Flexion Passive (degrees) 100 Extension Passive (degrees) 0 Hyper-Extension Active 0 Left Patient Position Supine Flexion Active (degrees) 118 Flexion Passive (degrees) 120 Extension Active (degrees) 0 Hyper-Extension Active 5 Knee ROM Limitations Knee ROM Limitations Soft Tissue Tightness Bony Restriction Muscle Tone Pain Swelling Comments Right knee EXT: negative 5 degrees Right Knee Flexion: 5- 100 ( active) PT-OP-M Strength Start: 08/11/18 09:43 Freq: Status: Active Protocol: Document 08/11/18 16:00 EA (Rec: 08/12/18 08:39 EA [id number]) Hip Strength Hip Manual Muscle Testing Left Reason Not Measured WFL Right Flexion (L2) 4 Good Extension (S1) 4 Good Abduction 4- Good- Adduction 4- Good- External Rotation 4 Good Internal Rotation 4 Good Reason Not Measured Pain Knee Strength Knee Manual Muscle Testing Right Flexion (S2) 4 Good Extension (L3) 4 Good Comments Pain with knee extension Left Flexion (S2) 5 Normal Extension (L3) 5 Normal Ankle/Foot Strength Ankle and Foot Manual Muscle Testing Right Reason Not Measured WFL PT-OP-Q Treatments Start: 08/11/18 09:43 Freq: Status: Active Protocol: Document 08/11/18 16:00 EA (Rec: 08/12/18 08:39 EA [id number]) Self-Care/Home Management Treatment Education Patient Education Body Mechanics Home Exercise Program Joint Protection Pain Management Safety Other Education Discussed pre- and post surgery exercises. Discussed post gait training with AD Discussed safe bed mobility and all transfers. PT-OP-T Assessment and Plan Start: 08/11/18 09:43 Freq: Status: Active Protocol: Document 08/11/18 17:15 EA (Rec: 08/12/18 07:28 EA [id number]) Physical Therapy Assessment Rehab Potential Rehabilitation Potential Good Evaluation Complexity Number of Personal Factors/Comorbidities 1-2 Number of Body Systems Impaired 3 Clinical Presentation at Evaluation Unstable Impairments Impairments Activity Tolerance Functional Activities Gait Pain ROM Soft Tissue Mobility Strength Goals Five Impairment No HEP in place 3 wks post op Architecture Faculty Member Goal (LTG) Patient will exhibit safe HEP 3 wks post op LTG Duration 09/13/18 Four Impairment Deacresed right knee strength Group Home Goal (LTG) Patient will increase right knee extensors to functional level LTG Duration 6 wks Three Impairment Decreased ambulation tolerance Group Home Goal (LTG) Patient will ambulate > 10 mins with no AD indep on flat surface LTG Duration 09/16/18 Two Impairment Step to stairs gait pattern Group Home Goal (LTG) Patient will exhibit alternating steps with no AD indep LTG Duration 09/16/18 One Impairment LEFS 33/80 Architecture Faculty Member Goal (LTG) LEFS results of 50/80 LTG Duration 09/16/18 Assessment Summary Assessment Patient is 62 y/0 F who currently diagnosed with bilateral knees osteoarthritis and is scheduled for R TKA on 08/23/18. Patient today has demonstrates low tolerance to mobility with impaired gait to both flat and uneven surfaces and as well to stairs. She demonstrates good carryover with all post surgery transfers and mobility technique after today's educational session. Patient will be seeing after surgery and therefore follow up assessment and tests is required. She is a good candidate for skilled outpatient PT and likely will reach her goals. Physical Therapy Plan Frequency and Duration Frequency of Treatment 2x/Week Duration of Treatment 8 wks Plan of Care Start Date 08/11/18 Plan of Care End Date 10/06/18 Therapeutic Interventions Therapeutic Interventions Home Exercise Program Joint Mobilizations Manual Therapy Neuromuscular Re-education Patient/Caregiver Education Self-Care/Home Management Soft Tissue Mobilization Taping Therapeutic Activities Therapeutic Exercises Modalities Cold Pack/Ice Massage Electric Stimulation Hot Packs Ultrasound Next Visit Focus/Plan Next Note Type Treatment Note Next Visit Plan Review post surgery TKA HEP
--- NOTE | 2018-08-30 14:30 | PT.OTN ---
Current Diagnoses Bilateral primary osteoarthritis of knee (08/30/18) Physical Therapy Treatment Note PT-OP-A Visit Information Start: 08/11/18 09:43 Freq: Status: Active Protocol: Document 08/30/18 13:46 [facility] (Rec: 08/30/18 14:30 [facility] [id number]) Out-Patient Physical Therapy Visit Information Visit Information Visit Type Treatment Note Visit Start Time 13:45 Visit Stop Time 14:25 Total Visit Minutes 40 Visit Number 2 PT-OP-B Current Condition Start: 08/11/18 09:43 Freq: Status: Active Protocol: Document 08/30/18 13:46 [facility] (Rec: 08/30/18 14:30 [facility] [id number]) Current Condition History of Current Condition Onset Date 2 years ago Current Complaints R TKA pre-op History of Current Condition Present right knee pain complaint started < 2 years ago with no history of injury or previous surgery. Patient mentioned that she had formal PT for a right hamstring injury on October/2017 up to to May 2018 and had 85 % recovered; states right knee pain due to arthritis was not resolved during the PT. Patient reports she is scheduled for a right TKA surgery this coming 08/23/18. Prior Treatments and Tests - May 2018 [facility] PT for right hamstring injury. Future Testing and Treatments Planned Right TKA 08/23/18 performed - pt to follow up with MD PT-OP-C Subjective Start: 08/11/18 09:43 Freq: Status: Active Protocol: Document 08/11/18 16:00 EA (Rec: 08/12/18 07:28 EA [id number]) OP-PT Subjective Patient Comments Patient Comments Patient wants to know safe mobility after the surgery and so she would be able to go back to previous level after the surgery. Patient Reported Progress Worse Patient Questionnaires Lower Extremity Functional Scale LEFS Score 33 LEFS Impairment 40 to 59% Impaired (Score 32- 47) OP-PT Pain Assessment Location Right Knee Pain Location Details Mid point of the right knee joint Intensity 6 Scale Used Numeric (1 - 10) Description Aching Frequency Intermittent Pain Aggravating Factors Standing Walking Stair Climbing Lifting Pain Alleviating Factors Medication Rest Home Pain Medication Use Pain Medications Used Yes Pain Behaviors Pain Behaviors Facial Grimacing PT-OP-D Balance Start: 08/11/18 09:43 Freq: Status: Active Protocol: Document 08/11/18 16:00 EA (Rec: 08/12/18 08:39 EA [id number]) Balance Tests Single Limb Standing Single Limb- Right unable Single Limb- Left <5 secs PT-OP-F Manual Assessment Start: 08/11/18 09:43 Freq: Status: Active Protocol: Document 08/11/18 16:00 EA (Rec: 08/12/18 07:28 EA [id number]) Manual Assessments Soft Tissue Assessment Soft Tissue Mobility Assessment Tightness to right quads, hamstring and calf Joint Mobility Assessment Joint Mobility Assessment Hypho mobile to right Tibio femoral joint PT-OP-G Mobility & Gait Start: 08/11/18 09:43 Freq: Status: Active Protocol: Document 08/30/18 13:46 LR (Rec: 08/30/18 14:30 [facility] [id number]) OP Gait Assessment Comments Gait Comments Amb with FWW with step to gait PT-OP-J Posture/Palpation/Skin Start: 08/11/18 09:43 Freq: Status: Active Protocol: Document 08/11/18 16:00 EA (Rec: 08/12/18 08:39 EA [id number]) Palpation Assessment Location One Palpation Location righ quads, hamstring, calf Palpation Findings Soft Tissue Tightness Tenderness PT-OP-K Range of Motion Start: 08/11/18 09:43 Freq: Status: Active Protocol: Document 08/30/18 13:46 LR (Rec: 08/30/18 14:30 [facility] [id number]) Knee Goniometric Range of Motion Knee Measured in Degrees Right Patient Position Supine Flexion Active (degrees) 65 Extension Active (degrees) 10 PT-OP-M Strength Start: 08/11/18 09:43 Freq: Status: Active Protocol: Document 08/30/18 13:46 LR (Rec: 08/30/18 14:30 [facility] [id number]) Hip Strength Hip Manual Muscle Testing Left Flexion (L2) 5 Normal Right Flexion (L2) 3- Fair- Knee Strength Knee Manual Muscle Testing Right Flexion (S2) 3+ Fair+ Extension (L3) 3- Fair- Comments pain PT-OP-Q Treatments Start: 08/11/18 09:43 Freq: Status: Active Protocol: Document 08/30/18 13:46 LR (Rec: 08/30/18 14:30 [facility] [id number]) Cardio Equipment Recumbent Stepper (Sci-Fit) Duration (Minutes) 8 Resistance 1 Seat Position 16 Therapeutic Exercises Supine Exercises SAQ Supine Exercise Name cueing for larger lift heel slides Supine Exercise Name heel slide Reps/Minutes 4 Comments w/end range stretch with blet SLR Supine Exercise Name AA to self Quad set Comments cueing for pushing down APs Supine Exercise Name APs Sitting Exercises knee flex Sitting Exercise Name w/scoot fwd Self-Care/Home Management Treatment Activities Self-Care/Home Management Activities edu on elevation & icing only 20 min on to help with swelling. PT-OP-T Assessment and Plan Start: 08/11/18 09:43 Freq: Status: Active Protocol: Document 08/30/18 13:46 [facility] (Rec: 08/30/18 14:30 [facility] [id number]) Physical Therapy Assessment Goals Five Impairment No HEP in place 3 wks post op Mcc Goal (LTG) Patient will exhibit safe HEP 3 wks post op LTG Duration 09/13/18 Four Impairment Deacresed right knee strength Clerk Manager Goal (LTG) Patient will increase right knee extensors to functional level LTG Duration 6 wks Three Impairment Decreased ambulation tolerance Clerk Manager Goal (LTG) Patient will ambulate > 10 mins with no AD indep on flat surface LTG Duration 09/16/18 Two Impairment Step to stairs gait pattern Mcc Goal (LTG) Patient will exhibit alternating steps with no AD indep LTG Duration 09/16/18 One Impairment LEFS 33/80 Mcc Goal (LTG) LEFS results of 50/80 LTG Duration 09/16/18 Assessment Summary Assessment Pt is 1 week s/p R TKA with dec range and dec quad activiation. She is motivated and has been doing HEP 2x/day. Physical Therapy Plan Frequency and Duration Frequency of Treatment 2x/Week Duration of Treatment 8 wks Plan of Care Start Date 08/11/18 Plan of Care End Date 10/06/18 Next Visit Focus/Plan Next Note Type Treatment Note Next Visit Plan Progress knee flex & gait
--- NOTE | 2018-09-06 12:05 | PT.OTN ---
Current Diagnoses Bilateral primary osteoarthritis of knee (09/06/18) Physical Therapy Treatment Note PT-OP-A Visit Information Start: 08/11/18 09:43 Freq: Status: Active Protocol: Document 09/06/18 11:23 [facility] (Rec: 09/06/18 12:04 [facility] [id number]) Out-Patient Physical Therapy Visit Information Visit Information Visit Type Treatment Note Visit Start Time 11:20 Visit Stop Time 11:55 Total Visit Minutes 35 Visit Number 3 PT-OP-B Current Condition Start: 08/11/18 09:43 Freq: Status: Active Protocol: Document 08/30/18 13:46 [facility] (Rec: 08/30/18 14:30 [facility] [id number]) Current Condition History of Current Condition Onset Date 2 years ago Current Complaints R TKA pre-op History of Current Condition Present right knee pain complaint started < 2 years ago with no history of injury or previous surgery. Patient mentioned that she had formal PT for a right hamstring injury on October/2017 up to to May 2018 and had 85 % recovered; states right knee pain due to arthritis was not resolved during the PT. Patient reports she is scheduled for a right TKA surgery this coming 08/23/18. Prior Treatments and Tests - May 2018 [facility] PT for right hamstring injury. Future Testing and Treatments Planned Right TKA 08/23/18 performed - pt to follow up with MD PT-OP-C Subjective Start: 08/11/18 09:43 Freq: Status: Active Protocol: Document 09/06/18 11:23 [facility] (Rec: 09/06/18 12:04 [facility] [id number]) OP-PT Subjective Patient Comments Patient Comments MD not concerned about wound at all. Pt sees MD again tomorrow. No longer pain meds at most times. PT-OP-D Balance Start: 08/11/18 09:43 Freq: Status: Active Protocol: Document 08/11/18 16:00 EA (Rec: 08/12/18 08:39 EA [id number]) Balance Tests Single Limb Standing Single Limb- Right unable Single Limb- Left <5 secs PT-OP-F Manual Assessment Start: 08/11/18 09:43 Freq: Status: Active Protocol: Document 08/11/18 16:00 EA (Rec: 08/12/18 07:28 EA [id number]) Manual Assessments Soft Tissue Assessment Soft Tissue Mobility Assessment Tightness to right quads, hamstring and calf Joint Mobility Assessment Joint Mobility Assessment Hypho mobile to right Tibio femoral joint PT-OP-G Mobility & Gait Start: 08/11/18 09:43 Freq: Status: Active Protocol: Document 08/30/18 13:46 [facility] (Rec: 08/30/18 14:30 [facility] [id number]) OP Gait Assessment Comments Gait Comments Amb with FWW with step to gait PT-OP-J Posture/Palpation/Skin Start: 08/11/18 09:43 Freq: Status: Active Protocol: Document 08/11/18 16:00 EA (Rec: 08/12/18 08:39 EA [id number]) Palpation Assessment Location One Palpation Location righ quads, hamstring, calf Palpation Findings Soft Tissue Tightness Tenderness PT-OP-K Range of Motion Start: 08/11/18 09:43 Freq: Status: Active Protocol: Document 08/30/18 13:46 [facility] (Rec: 08/30/18 14:30 [facility] [id number]) Knee Goniometric Range of Motion Knee Measured in Degrees Right Patient Position Supine Flexion Active (degrees) 65 Extension Active (degrees) 10 PT-OP-M Strength Start: 08/11/18 09:43 Freq: Status: Active Protocol: Document 08/30/18 13:46 [facility] (Rec: 08/30/18 14:30 [facility] [id number]) Hip Strength Hip Manual Muscle Testing Left Flexion (L2) 5 Normal Right Flexion (L2) 3- Fair- Knee Strength Knee Manual Muscle Testing Right Flexion (S2) 3+ Fair+ Extension (L3) 3- Fair- Comments pain PT-OP-Q Treatments Start: 08/11/18 09:43 Freq: Status: Active Protocol: Document 09/06/18 11:23 [facility] (Rec: 09/06/18 12:04 [facility] [id number]) Cardio Equipment Recumbent Stepper (Sci-Fit) Duration (Minutes) 8 Resistance 1 Seat Position 15 Other for ROM Gym Equipment Shuttle Recovery Unilateral Squats Resistance 25 Shuttle Recovery Platform Stable Reps/Time 30 Bilateral Squats Resistance 50 Shuttle Recovery Platform Stable Reps/Time 30 Therapeutic Exercises Supine Exercises wall slides Supine Exercise Name wall flex Reps/Minutes 5 sec hold x5 knee flex Supine Exercise Name tball flex Reps/Minutes 5 sec hold x10 heel slides Supine Exercise Name heel slide Reps/Minutes 8 Comments w/end range stretch manually Sidelying Exercises hip abd Sidelying Exercise Name hip abd Side right Reps/Minutes x=2x5 Standing Exercises hip ext Standing Exercise Name hip ext Side bilateral Reps/Minutes 2x10 heel raises Standing Exercise Name heel raises Side bilateral Reps/Minutes 20 Gait Training Gait Activity cane Description cane training Comments focus on sequencing Manual Therapy Treatment Manual Techniques ext Type stretch into ext PT-OP-R Modalities Start: 08/11/18 09:43 Freq: Status: Active Protocol: Document 09/06/18 11:23 [facility] (Rec: 09/06/18 12:04 [facility] [id number]) Hot Pack/Cold Pack Treatment cryocuff Location R knee Treatment Duration (minutes) 10 Comments ice back behind knee also and leg elevated PT-OP-T Assessment and Plan Start: 08/11/18 09:43 Freq: Status: Active Protocol: Document 09/06/18 11:23 [facility] (Rec: 09/06/18 12:04 [facility] [id number]) Physical Therapy Assessment Goals Five Impairment No HEP in place 3 wks post op Professor Of Finance Goal (LTG) Patient will exhibit safe HEP 3 wks post op LTG Duration 09/13/18 Four Impairment Deacresed right knee strength Assisted Goal (LTG) Patient will increase right knee extensors to functional level LTG Duration 6 wks Three Impairment Decreased ambulation tolerance Professor Of Finance Goal (LTG) Patient will ambulate > 10 mins with no AD indep on flat surface LTG Duration 09/16/18 Two Impairment Step to stairs gait pattern Professor Of Finance Goal (LTG) Patient will exhibit alternating steps with no AD indep LTG Duration 09/16/18 One Impairment LEFS 33/80 Assisted Goal (LTG) LEFS results of 50/80 LTG Duration 09/16/18 Assessment Summary Assessment Pt able to tolerate small reps with abd & flex exercises today, but was able to inc activitiy. Cont to have significant swelling limiting range. Pt to discuss with MD tomorrow Physical Therapy Plan Frequency and Duration Frequency of Treatment 2x/Week Duration of Treatment 8 wks Plan of Care Start Date 08/11/18 Plan of Care End Date 10/06/18 Next Visit Focus/Plan Next Note Type Treatment Note Next Visit Plan TKE standing, knee flex standing
--- NOTE | 2018-09-13 14:26 | PT.OTN ---
Current Diagnoses Bilateral primary osteoarthritis of knee (09/13/18) Physical Therapy Treatment Note PT-OP-A Visit Information Start: 08/11/18 09:43 Freq: Status: Active Protocol: Document 09/13/18 13:44 [facility] (Rec: 09/13/18 14:26 [facility] [id number]) Out-Patient Physical Therapy Visit Information Visit Information Visit Type Treatment Note Visit Note dec time d/t insurance limitations Visit Start Time 13:45 Visit Stop Time 14:20 Total Visit Minutes 35 Visit Number 4 PT-OP-B Current Condition Start: 08/11/18 09:43 Freq: Status: Active Protocol: Document 08/30/18 13:46 [facility] (Rec: 08/30/18 14:30 [facility] [id number]) Current Condition History of Current Condition Onset Date 2 years ago Current Complaints R TKA pre-op History of Current Condition Present right knee pain complaint started < 2 years ago with no history of injury or previous surgery. Patient mentioned that she had formal PT for a right hamstring injury on October/2017 up to to May 2018 and had 85 % recovered; states right knee pain due to arthritis was not resolved during the PT. Patient reports she is scheduled for a right TKA surgery this coming 08/23/18. Prior Treatments and Tests - May 2018 [facility] PT for right hamstring injury. Future Testing and Treatments Planned Right TKA 08/23/18 performed - pt to follow up with PT-OP-C Subjective Start: 08/11/18 09:43 Freq: Status: Active Protocol: Document 09/13/18 13:44 [facility] (Rec: 09/13/18 14:26 [facility] [id number]) OP-PT Subjective Patient Comments Patient Comments Pt reports she finds she is leaving her cane around. pleased with progress and sent referal for compression stocking PT-OP-D Balance Start: 08/11/18 09:43 Freq: Status: Active Protocol: Document 08/11/18 16:00 EA (Rec: 08/12/18 08:39 EA [id number]) Balance Tests Single Limb Standing Single Limb- Right unable Single Limb- Left <5 secs PT-OP-F Manual Assessment Start: 08/11/18 09:43 Freq: Status: Active Protocol: Document 08/11/18 16:00 EA (Rec: 08/12/18 07:28 EA [id number]) Manual Assessments Soft Tissue Assessment Soft Tissue Mobility Assessment Tightness to right quads, hamstring and calf Joint Mobility Assessment Joint Mobility Assessment Hypho mobile to right Tibio femoral joint PT-OP-G Mobility & Gait Start: 08/11/18 09:43 Freq: Status: Active Protocol: Document 08/30/18 13:46 [facility] (Rec: 08/30/18 14:30 [facility] [id number]) OP Gait Assessment Comments Gait Comments Amb with FWW with step to gait PT-OP-J Posture/Palpation/Skin Start: 08/11/18 09:43 Freq: Status: Active Protocol: Document 08/11/18 16:00 EA (Rec: 08/12/18 08:39 EA [id number]) Palpation Assessment Location One Palpation Location righ quads, hamstring, calf Palpation Findings Soft Tissue Tightness Tenderness PT-OP-K Range of Motion Start: 08/11/18 09:43 Freq: Status: Active Protocol: Document 08/30/18 13:46 [facility] (Rec: 08/30/18 14:30 [facility] [id number]) Knee Goniometric Range of Motion Knee Measured in Degrees Right Patient Position Supine Flexion Active (degrees) 65 Extension Active (degrees) 10 PT-OP-M Strength Start: 08/11/18 09:43 Freq: Status: Active Protocol: Document 08/30/18 13:46 [facility] (Rec: 08/30/18 14:30 [facility] [id number]) Hip Strength Hip Manual Muscle Testing Left Flexion (L2) 5 Normal Right Flexion (L2) 3- Fair- Knee Strength Knee Manual Muscle Testing Right Flexion (S2) 3+ Fair+ Extension (L3) 3- Fair- Comments pain PT-OP-Q Treatments Start: 08/11/18 09:43 Freq: Status: Active Protocol: Document 09/13/18 13:44 [facility] (Rec: 09/13/18 14:26 [facility] [id number]) Cardio Equipment Recumbent Stepper (Sci-Fit) Duration (Minutes) 6 Resistance 1 Seat Position 13-12 Other for ROM Gym Equipment Shuttle Recovery Unilateral Squats Resistance 37x 8 reps then 25lb Shuttle Recovery Platform Stable Reps/Time 30 Bilateral Squats Resistance 75 Shuttle Recovery Platform Stable Reps/Time 30 Therapeutic Exercises Standing Exercises knee flex Standing Exercise Name knee flex Equipment Used rail Reps/Minutes 15 TKE Standing Exercise Name tke Equipment Used lvl2 Reps/Minutes 30 Gait Training Gait Activity no AD Description no AD in mirror Treatment Focus relax arms and push off Manual Therapy Treatment Soft Tissue Mobilization HS Body Location HS R Mobilization Type Rolling Intensity/Depth Superficial Manual Techniques ext Type stretch into ext Comments in supine and with hold relax HS stretching PT-OP-R Modalities Start: 08/11/18 09:43 Freq: Status: Active Protocol: Document 09/06/18 11:23 [facility] (Rec: 09/06/18 12:04 [facility] [id number]) Hot Pack/Cold Pack Treatment cryocuff Location R knee Treatment Duration (minutes) 10 Comments ice back behind knee also and leg elevated PT-OP-T Assessment and Plan Start: 08/11/18 09:43 Freq: Status: Active Protocol: Document 09/13/18 13:44 [facility] (Rec: 09/13/18 14:26 [facility] [id number]) Physical Therapy Assessment Goals Five Impairment No HEP in place 3 wks post op Quill Stripper Goal (LTG) Patient will exhibit safe HEP 3 wks post op LTG Duration 09/13/18 Four Impairment Deacresed right knee strength Quill Stripper Goal (LTG) Patient will increase right knee extensors to functional level LTG Duration 6 wks Three Impairment Decreased ambulation tolerance Quill Stripper Goal (LTG) Patient will ambulate > 10 mins with no AD indep on flat surface LTG Duration 09/16/18 Two Impairment Step to stairs gait pattern Group Home Goal (LTG) Patient will exhibit alternating steps with no AD indep LTG Duration 09/16/18 One Impairment LEFS 33/80 Group Home Goal (LTG) LEFS results of 50/80 LTG Duration 09/16/18 Assessment Summary Assessment Pt able to tolerate small increase in resistance with double leg press. She was able to amb without AD with cueing for relaxing arms and inc push off through RLE. Physical Therapy Plan Frequency and Duration Frequency of Treatment 2x/Week Duration of Treatment 8 wks Plan of Care Start Date 08/11/18 Plan of Care End Date 10/06/18 Next Visit Focus/Plan Next Note Type Treatment Note Next Visit Plan work soft tissues as needed
--- NOTE | 2018-09-16 17:02 | PT.OTN ---
Current Diagnoses Bilateral primary osteoarthritis of knee (09/16/18) Physical Therapy Treatment Note PT-OP-A Visit Information Start: 08/11/18 09:43 Freq: Status: Active Protocol: Document 09/16/18 14:30 (Rec: 09/16/18 17:02 [email or web address]) Out-Patient Physical Therapy Visit Information Visit Information Visit Type Treatment Note Visit Start Time 14:30 Visit Stop Time 15:15 Total Visit Minutes 45 Visit Number 5 PT-OP-B Current Condition Start: 08/11/18 09:43 Freq: Status: Active Protocol: Document 08/30/18 13:46 LR (Rec: 08/30/18 14:30 [facility] [id number]) Current Condition History of Current Condition Onset Date 2 years ago Current Complaints R TKA pre-op History of Current Condition Present right knee pain complaint started < 2 years ago with no history of injury or previous surgery. Patient mentioned that she had formal PT for a right hamstring injury on October/2017 up to to May 2018 and had 85 % recovered; states right knee pain due to arthritis was not resolved during the PT. Patient reports she is scheduled for a right TKA surgery this coming 08/23/18. Prior Treatments and Tests - May 2018 [facility] PT for right hamstring injury. Future Testing and Treatments Planned Right TKA 08/23/18 performed - pt to follow up with MD PT-OP-C Subjective Start: 08/11/18 09:43 Freq: Status: Active Protocol: Document 09/16/18 14:30 HH (Rec: 09/16/18 17:02 [email or web address]) OP-PT Subjective Patient Comments Patient Comments Pt states Mary been walking around the house without my cane and i dont really have knee pain at this point. i still feel my R knee is quite sensitive to touch and pressure. Patient Reported Progress Improving PT-OP-D Balance Start: 08/11/18 09:43 Freq: Status: Active Protocol: Document 08/11/18 16:00 EA (Rec: 08/12/18 08:39 EA [id number]) Balance Tests Single Limb Standing Single Limb- Right unable Single Limb- Left <5 secs PT-OP-F Manual Assessment Start: 08/11/18 09:43 Freq: Status: Active Protocol: Document 08/11/18 16:00 EA (Rec: 08/12/18 07:28 EA [id number]) Manual Assessments Soft Tissue Assessment Soft Tissue Mobility Assessment Tightness to right quads, hamstring and calf Joint Mobility Assessment Joint Mobility Assessment Hypho mobile to right Tibio femoral joint PT-OP-G Mobility & Gait Start: 08/11/18 09:43 Freq: Status: Active Protocol: Document 08/30/18 13:46 [facility] (Rec: 08/30/18 14:30 [facility] [id number]) OP Gait Assessment Comments Gait Comments Amb with FWW with step to gait PT-OP-J Posture/Palpation/Skin Start: 08/11/18 09:43 Freq: Status: Active Protocol: Document 08/11/18 16:00 EA (Rec: 08/12/18 08:39 EA [id number]) Palpation Assessment Location One Palpation Location righ quads, hamstring, calf Palpation Findings Soft Tissue Tightness Tenderness PT-OP-K Range of Motion Start: 08/11/18 09:43 Freq: Status: Active Protocol: Document 08/30/18 13:46 [facility] (Rec: 08/30/18 14:30 [facility] [id number]) Knee Goniometric Range of Motion Knee Measured in Degrees Right Patient Position Supine Flexion Active (degrees) 65 Extension Active (degrees) 10 PT-OP-M Strength Start: 08/11/18 09:43 Freq: Status: Active Protocol: Document 08/30/18 13:46 [facility] (Rec: 08/30/18 14:30 [facility] [id number]) Hip Strength Hip Manual Muscle Testing Left Flexion (L2) 5 Normal Right Flexion (L2) 3- Fair- Knee Strength Knee Manual Muscle Testing Right Flexion (S2) 3+ Fair+ Extension (L3) 3- Fair- Comments pain PT-OP-Q Treatments Start: 08/11/18 09:43 Freq: Status: Active Protocol: Document 09/16/18 14:30 HH (Rec: 09/16/18 17:02 HH [email or web address]) Gym Equipment Shuttle Recovery Unilateral Squats Details R feet at bottom grid Resistance 37x 8 reps then 25lb Shuttle Recovery Platform Stable Reps/Time 30 Bilateral Squats Details Both feet at bottom grid Resistance 75 Shuttle Recovery Platform Stable Reps/Time 30 Therapeutic Exercises Supine Exercises Quad set Side right Equipment Used towel underneath ankle Comments with DF Standing Exercises TKE Standing Exercise Name tke Equipment Used lvl2 Reps/Minutes 30 Other Exercises step over ratna Other Exercise Name no UE support Equipment Used ratna Comments L LE step over ratna to facilitate R LE WB Gait Training Gait Activity no AD Description no AD in mirror Treatment Focus relax arms and push off Comments amb on yoga mat Manual Therapy Treatment Soft Tissue Mobilization HS Body Location HS R Mobilization Type Rolling Intensity/Depth Moderate PT-OP-R Modalities Start: 08/11/18 09:43 Freq: Status: Active Protocol: Document 09/06/18 11:23 LR (Rec: 09/06/18 12:04 [facility] [id number]) Hot Pack/Cold Pack Treatment cryocuff Location R knee Treatment Duration (minutes) 10 Comments ice back behind knee also and leg elevated PT-OP-T Assessment and Plan Start: 08/11/18 09:43 Freq: Status: Active Protocol: Document 09/16/18 14:30 (Rec: 09/16/18 17:02 [email or web address]) Physical Therapy Assessment Assessment Summary Assessment Pt sherman tx well today. Noticeable hardening around R knee joint (medial >Lateral) but reduced swelling at lower leg. Tx focused on manual therapy and R LE weight acceptance. Pt was able to place her foot at the bottom grid of shutter platform for unilateral squat to facilitate knee flexion. Physical Therapy Plan Next Visit Focus/Plan Next Note Type Treatment Note Next Visit Plan work soft tissues as needed TKE, knee flexion through shutter leg press, gait training focus on R LE weight acceptance.
--- NOTE | 2018-09-20 12:01 | PT.OTN ---
Current Diagnoses Bilateral primary osteoarthritis of knee (09/20/18) Physical Therapy Treatment Note PT-OP-A Visit Information Start: 08/11/18 09:43 Freq: Status: Active Protocol: Document 09/20/18 11:22 [facility] (Rec: 09/20/18 12:01 [facility] [id number]) Out-Patient Physical Therapy Visit Information Visit Information Visit Type Treatment Note Visit Note dec time d/t insurance limitations Visit Start Time 11:20 Visit Stop Time 11:55 Total Visit Minutes 35 Visit Number 6 PT-OP-B Current Condition Start: 08/11/18 09:43 Freq: Status: Active Protocol: Document 08/30/18 13:46 [facility] (Rec: 08/30/18 14:30 [facility] [id number]) Current Condition History of Current Condition Onset Date 2 years ago Current Complaints R TKA pre-op History of Current Condition Present right knee pain complaint started < 2 years ago with no history of injury or previous surgery. Patient mentioned that she had formal PT for a right hamstring injury on October/2017 up to to May 2018 and had 85 % recovered; states right knee pain due to arthritis was not resolved during the PT. Patient reports she is scheduled for a right TKA surgery this coming 08/23/18. Prior Treatments and Tests - May 2018 [facility] PT for right hamstring injury. Future Testing and Treatments Planned Right TKA 08/23/18 performed - pt to follow up with MD PT-OP-C Subjective Start: 08/11/18 09:43 Freq: Status: Active Protocol: Document 09/20/18 11:22 [facility] (Rec: 09/20/18 12:01 [facility] [id number]) OP-PT Subjective Patient Comments Patient Comments Pt reports feeling much looser after the work done on her knee last session. Patient Reported Progress Improving PT-OP-D Balance Start: 08/11/18 09:43 Freq: Status: Active Protocol: Document 08/11/18 16:00 EA (Rec: 08/12/18 08:39 EA [id number]) Balance Tests Single Limb Standing Single Limb- Right unable Single Limb- Left <5 secs PT-OP-F Manual Assessment Start: 08/11/18 09:43 Freq: Status: Active Protocol: Document 08/11/18 16:00 EA (Rec: 08/12/18 07:28 EA [id number]) Manual Assessments Soft Tissue Assessment Soft Tissue Mobility Assessment Tightness to right quads, hamstring and calf Joint Mobility Assessment Joint Mobility Assessment Hypho mobile to right Tibio femoral joint PT-OP-G Mobility & Gait Start: 08/11/18 09:43 Freq: Status: Active Protocol: Document 08/30/18 13:46 [facility] (Rec: 08/30/18 14:30 [facility] [id number]) OP Gait Assessment Comments Gait Comments Amb with FWW with step to gait PT-OP-J Posture/Palpation/Skin Start: 08/11/18 09:43 Freq: Status: Active Protocol: Document 08/11/18 16:00 EA (Rec: 08/12/18 08:39 EA [id number]) Palpation Assessment Location One Palpation Location righ quads, hamstring, calf Palpation Findings Soft Tissue Tightness Tenderness PT-OP-K Range of Motion Start: 08/11/18 09:43 Freq: Status: Active Protocol: Document 08/30/18 13:46 [facility] (Rec: 08/30/18 14:30 [facility] [id number]) Knee Goniometric Range of Motion Knee Measured in Degrees Right Patient Position Supine Flexion Active (degrees) 65 Extension Active (degrees) 10 PT-OP-M Strength Start: 08/11/18 09:43 Freq: Status: Active Protocol: Document 08/30/18 13:46 [facility] (Rec: 08/30/18 14:30 [facility] [id number]) Hip Strength Hip Manual Muscle Testing Left Flexion (L2) 5 Normal Right Flexion (L2) 3- Fair- Knee Strength Knee Manual Muscle Testing Right Flexion (S2) 3+ Fair+ Extension (L3) 3- Fair- Comments pain PT-OP-Q Treatments Start: 08/11/18 09:43 Freq: Status: Active Protocol: Document 09/20/18 11:22 [facility] (Rec: 09/20/18 12:01 [facility] [id number]) Cardio Equipment Recumbent Stepper (Sci-Fit) Duration (Minutes) 6 Resistance 2 Seat Position 11-10 Other for ROM Gym Equipment Shuttle Recovery Unilateral Squats Resistance 50 Shuttle Recovery Platform Stable Reps/Time 2x15 Bilateral Squats Resistance 100 Shuttle Recovery Platform Stable Reps/Time 30 Therapeutic Exercises Standing Exercises sit<>stand Standing Exercise Name w/hands Reps/Minutes 10 sidestep Standing Exercise Name sidestep Side bilateral Reps/Minutes 2x20ft Gait Training Gait Activity no AD Description no AD in mirror Treatment Focus relax arms and push off Manual Therapy Treatment Soft Tissue Mobilization lat quad/ITB Body Location lat quad/ITB Mobilization Type Rolling Intensity/Depth Moderate Manual Techniques ext Type stretch into ext Comments in supine and with hold relax HS stretching PT-OP-R Modalities Start: 08/11/18 09:43 Freq: Status: Active Protocol: Document 09/06/18 11:23 [facility] (Rec: 09/06/18 12:04 [facility] [id number]) Hot Pack/Cold Pack Treatment cryocuff Location R knee Treatment Duration (minutes) 10 Comments ice back behind knee also and leg elevated PT-OP-T Assessment and Plan Start: 08/11/18 09:43 Freq: Status: Active Protocol: Document 09/20/18 11:22 [facility] (Rec: 09/20/18 12:01 [facility] [id number]) Physical Therapy Assessment Goals Five Impairment No HEP in place 3 wks post op Podiatric Medicine Doctor Goal (LTG) Patient will exhibit safe HEP 3 wks post op LTG Duration 09/13/18 Four Impairment Deacresed right knee strength Podiatric Medicine Doctor Goal (LTG) Patient will increase right knee extensors to functional level LTG Duration 6 wks Three Impairment Decreased ambulation tolerance [facility] Goal (LTG) Patient will ambulate > 10 mins with no AD indep on flat surface LTG Duration 09/16/18 Two Impairment Step to stairs gait pattern [facility] Goal (LTG) Patient will exhibit alternating steps with no AD indep LTG Duration 09/16/18 One Impairment LEFS 33/80 [facility] Goal (LTG) LEFS results of 50/80 LTG Duration 09/16/18 Assessment Summary Assessment Pt improving with gait but still gets lat lean with gait. She is impreoving with strength but did have difficulty with maintaining neutral posture in sidestep. After exercise pt had ROM of 5 -100. After manual, about 2- 105. Physical Therapy Plan Frequency and Duration Frequency of Treatment 2x/Week Duration of Treatment 8 wks Plan of Care Start Date 08/11/18 Plan of Care End Date 10/06/18 Next Visit Focus/Plan Next Note Type Treatment Note Next Visit Plan recumbant bike to start; cont to advance gait mechanics & LE strength
--- NOTE | 2018-09-23 17:59 | PT.OTN ---
Current Diagnoses Bilateral primary osteoarthritis of knee (09/23/18) Physical Therapy Treatment Note PT-OP-A Visit Information Start: 08/11/18 09:43 Freq: Status: Active Protocol: Document 09/23/18 15:15 (Rec: 09/23/18 17:05 [email or web address]) Out-Patient Physical Therapy Visit Information Visit Information Visit Type Treatment Note Visit Start Time 15:15 Visit Stop Time 16:00 Total Visit Minutes 45 Visit Number 7 PT-OP-B Current Condition Start: 08/11/18 09:43 Freq: Status: Active Protocol: Document 08/30/18 13:46 LR (Rec: 08/30/18 14:30 [facility] [id number]) Current Condition History of Current Condition Onset Date 2 years ago Current Complaints R TKA pre-op History of Current Condition Present right knee pain complaint started < 2 years ago with no history of injury or previous surgery. Patient mentioned that she had formal PT for a right hamstring injury on October/2017 up to to May 2018 and had 85 % recovered; states right knee pain due to arthritis was not resolved during the PT. Patient reports she is scheduled for a right TKA surgery this coming 08/23/18. Prior Treatments and Tests - May 2018 [facility] PT for right hamstring injury. Future Testing and Treatments Planned Right TKA 08/23/18 performed - pt to follow up with MD PT-OP-C Subjective Start: 08/11/18 09:43 Freq: Status: Active Protocol: Document 09/23/18 15:15 (Rec: 09/23/18 17:05 [email or web address]) OP-PT Subjective Patient Comments Patient Comments Pt reports she is feeling good and did not use her SPC lately. My swelling has been getting better but i do feel stiff today with my knee. Patient Reported Progress Improving PT-OP-D Balance Start: 08/11/18 09:43 Freq: Status: Active Protocol: Document 08/11/18 16:00 EA (Rec: 08/12/18 08:39 EA [id number]) Balance Tests Single Limb Standing Single Limb- Right unable Single Limb- Left <5 secs PT-OP-F Manual Assessment Start: 08/11/18 09:43 Freq: Status: Active Protocol: Document 08/11/18 16:00 EA (Rec: 08/12/18 07:28 EA [id number]) Manual Assessments Soft Tissue Assessment Soft Tissue Mobility Assessment Tightness to right quads, hamstring and calf Joint Mobility Assessment Joint Mobility Assessment Hypho mobile to right Tibio femoral joint PT-OP-G Mobility & Gait Start: 08/11/18 09:43 Freq: Status: Active Protocol: Document 08/30/18 13:46 LR (Rec: 08/30/18 14:30 [facility] [id number]) OP Gait Assessment Comments Gait Comments Amb with FWW with step to gait PT-OP-J Posture/Palpation/Skin Start: 08/11/18 09:43 Freq: Status: Active Protocol: Document 08/11/18 16:00 EA (Rec: 08/12/18 08:39 EA [id number]) Palpation Assessment Location One Palpation Location righ quads, hamstring, calf Palpation Findings Soft Tissue Tightness Tenderness PT-OP-K Range of Motion Start: 08/11/18 09:43 Freq: Status: Active Protocol: Document 08/30/18 13:46 [facility] (Rec: 08/30/18 14:30 [facility] [id number]) Knee Goniometric Range of Motion Knee Measured in Degrees Right Patient Position Supine Flexion Active (degrees) 65 Extension Active (degrees) 10 PT-OP-M Strength Start: 08/11/18 09:43 Freq: Status: Active Protocol: Document 08/30/18 13:46 [facility] (Rec: 08/30/18 14:30 [facility] [id number]) Hip Strength Hip Manual Muscle Testing Left Flexion (L2) 5 Normal Right Flexion (L2) 3- Fair- Knee Strength Knee Manual Muscle Testing Right Flexion (S2) 3+ Fair+ Extension (L3) 3- Fair- Comments pain PT-OP-Q Treatments Start: 08/11/18 09:43 Freq: Status: Active Protocol: Document 09/23/18 15:15 HH (Rec: 09/23/18 17:58 HH [email or web address]) Therapeutic Exercises Standing Exercises HS stretch with stagger stance Standing Exercise Name butt against wall, R knee step over Comments HS stretch with stagger stance sit<>stand Standing Exercise Name w/hands on grab bars Reps/Minutes 10 Comments 2 inch box under L LE sidestep Standing Exercise Name sidestep Side bilateral Comments over ratna Other Exercises step over ratna Equipment Used ratna Comments L LE step over ratna to facilitate R LE WB Manual Therapy Treatment Soft Tissue Mobilization lat quad/ITB Body Location lat quad/ITB Mobilization Type Rolling Intensity/Depth Moderate HS Body Location HS R Mobilization Type Rolling Intensity/Depth Moderate PT-OP-R Modalities Start: 08/11/18 09:43 Freq: Status: Active Protocol: Document 09/06/18 11:23 [facility] (Rec: 09/06/18 12:04 LR [id number]) Hot Pack/Cold Pack Treatment cryocuff Location R knee Treatment Duration (minutes) 10 Comments ice back behind knee also and leg elevated PT-OP-T Assessment and Plan Start: 08/11/18 09:43 Freq: Status: Active Protocol: Document 09/23/18 15:15 (Rec: 09/23/18 17:58 [email or web address]) Physical Therapy Assessment Assessment Summary Assessment Pt cont presents sligth R antalgic gait with decreased WB on R LE. Tx focused on manual therapy with proximal stroke on R knee joint, single leg weight acceptance through step over ratna and modified sit to stand with 2 inch box under LLE to increase WB on R LE Physical Therapy Plan Next Visit Focus/Plan Next Note Type Treatment Note Next Visit Plan recumbant bike to start; cont to advance gait mechanics & LE strength step over with RLE and sit to stand with 2 inch box under LLE
--- NOTE | 2018-10-04 14:29 | PT.OTN ---
Current Diagnoses Bilateral primary osteoarthritis of knee (10/04/18) Physical Therapy Treatment Note PT-OP-A Visit Information Start: 08/11/18 09:43 Freq: Status: Active Protocol: Document 10/04/18 13:48 [facility] (Rec: 10/04/18 14:29 [facility] [id number]) Out-Patient Physical Therapy Visit Information Visit Information Visit Type Treatment Note Visit Note dec time d/t insurance limitations Visit Start Time 13:45 Visit Stop Time 14:20 Total Visit Minutes 35 Visit Number 8 PT-OP-B Current Condition Start: 08/11/18 09:43 Freq: Status: Active Protocol: Document 08/30/18 13:46 [facility] (Rec: 08/30/18 14:30 [facility] [id number]) Current Condition History of Current Condition Onset Date 2 years ago Current Complaints R TKA pre-op History of Current Condition Present right knee pain complaint started < 2 years ago with no history of injury or previous surgery. Patient mentioned that she had formal PT for a right hamstring injury on October/2017 up to to May 2018 and had 85 % recovered; states right knee pain due to arthritis was not resolved during the PT. Patient reports she is scheduled for a right TKA surgery this coming 08/23/18. Prior Treatments and Tests - May 2018 [facility] PT for right hamstring injury. Future Testing and Treatments Planned Right TKA 08/23/18 performed - pt to follow up with MD PT-OP-C Subjective Start: 08/11/18 09:43 Freq: Status: Active Protocol: Document 10/04/18 13:48 [facility] (Rec: 10/04/18 14:29 [facility] [id number]) OP-PT Subjective Patient Comments Patient Comments Pt reports she has not done as many exercises, but has noticed her knee being stiffer in the cold. PT-OP-D Balance Start: 08/11/18 09:43 Freq: Status: Active Protocol: Document 08/11/18 16:00 EA (Rec: 08/12/18 08:39 EA [id number]) Balance Tests Single Limb Standing Single Limb- Right unable Single Limb- Left <5 secs PT-OP-F Manual Assessment Start: 08/11/18 09:43 Freq: Status: Active Protocol: Document 08/11/18 16:00 EA (Rec: 08/12/18 07:28 EA [id number]) Manual Assessments Soft Tissue Assessment Soft Tissue Mobility Assessment Tightness to right quads, hamstring and calf Joint Mobility Assessment Joint Mobility Assessment Hypho mobile to right Tibio femoral joint PT-OP-G Mobility & Gait Start: 08/11/18 09:43 Freq: Status: Active Protocol: Document 08/30/18 13:46 [facility] (Rec: 08/30/18 14:30 [facility] [id number]) OP Gait Assessment Comments Gait Comments Amb with FWW with step to gait PT-OP-J Posture/Palpation/Skin Start: 08/11/18 09:43 Freq: Status: Active Protocol: Document 08/11/18 16:00 EA (Rec: 08/12/18 08:39 EA [id number]) Palpation Assessment Location One Palpation Location righ quads, hamstring, calf Palpation Findings Soft Tissue Tightness Tenderness PT-OP-K Range of Motion Start: 08/11/18 09:43 Freq: Status: Active Protocol: Document 08/30/18 13:46 [facility] (Rec: 08/30/18 14:30 [facility] [id number]) Knee Goniometric Range of Motion Knee Measured in Degrees Right Patient Position Supine Flexion Active (degrees) 65 Extension Active (degrees) 10 PT-OP-M Strength Start: 08/11/18 09:43 Freq: Status: Active Protocol: Document 08/30/18 13:46 [facility] (Rec: 08/30/18 14:30 [facility] [id number]) Hip Strength Hip Manual Muscle Testing Left Flexion (L2) 5 Normal Right Flexion (L2) 3- Fair- Knee Strength Knee Manual Muscle Testing Right Flexion (S2) 3+ Fair+ Extension (L3) 3- Fair- Comments pain PT-OP-Q Treatments Start: 08/11/18 09:43 Freq: Status: Active Protocol: Document 10/04/18 13:48 [facility] (Rec: 10/04/18 14:29 [facility] [id number]) Cardio Equipment Recumbent Bicycle Duration (Minutes) 6 Resistance 2 Seat Position 10 Therapeutic Exercises Sidelying Exercises hip abd Sidelying Exercise Name hip abd Reps/Minutes 10 Standing Exercises sit<>stand Standing Exercise Name &mini squat over chair Reps/Minutes 12 sidestep Standing Exercise Name sidestep Side bilateral Equipment Used L1 Reps/Minutes 20ft hip ext Standing Exercise Name hip ext Side bilateral Equipment Used L1 Reps/Minutes 15x2 Manual Therapy Treatment Soft Tissue Mobilization scar Body Location scar Mobilization Type Myofascial Release Intensity/Depth Superficial HS Body Location HS R Mobilization Type Rolling Intensity/Depth Moderate PT-OP-R Modalities Start: 08/11/18 09:43 Freq: Status: Active Protocol: Document 09/06/18 11:23 [facility] (Rec: 09/06/18 12:04 [facility] [id number]) Hot Pack/Cold Pack Treatment cryocuff Location R knee Treatment Duration (minutes) 10 Comments ice back behind knee also and leg elevated PT-OP-T Assessment and Plan Start: 08/11/18 09:43 Freq: Status: Active Protocol: Document 10/04/18 13:48 [facility] (Rec: 10/04/18 14:29 [facility] [id number]) Physical Therapy Assessment Goals Five Impairment No HEP in place 3 wks post op Senior Research Engineer Goal (LTG) Patient will exhibit safe HEP 3 wks post op LTG Duration 09/13/18-achieved advancing as needed Four Impairment Deacresed right knee strength Senior Research Engineer Goal (LTG) Patient will increase right knee extensors to functional level LTG Duration achieved Three Impairment Decreased ambulation tolerance Care Home Goal (LTG) Patient will ambulate > 10 mins with no AD indep on flat surface LTG Duration 10/17/18-improving Two Impairment Step to stairs gait pattern Senior Research Engineer Goal (LTG) Patient will exhibit alternating steps with no AD indep LTG Duration 11/14/18-improving One Impairment LEFS 33/80 Care Home Goal (LTG) LEFS results of 50/80 LTG Duration 11/14/18 Assessment Summary Assessment Pt is making excellent progress towards goals. She cont to advance in strength & ROM and is now amb without AD. She cont to have mild gait deviations and has ROM and strength limitations that cont to limit functional activities. Physical Therapy Plan Frequency and Duration Frequency of Treatment 1-2x/Week Duration of Treatment 2 months Plan of Care Start Date 10/04/18 Plan of Care End Date 12/02/18 Therapeutic Interventions Therapeutic Interventions Balance Training Gait Training Home Exercise Program Joint Mobilizations Manual Therapy Patient/Caregiver Education Self-Care/Home Management Soft Tissue Mobilization Taping Therapeutic Activities Therapeutic Exercises Modalities Cold Pack/Ice Massage Electric Stimulation Hot Packs Ultrasound Next Visit Focus/Plan Next Note Type Treatment Note Next Visit Plan Cont to advance gait & abd & ext strength
--- NOTE | 2018-10-04 14:30 | PT.OPPOC ---
Current Diagnoses Bilateral primary osteoarthritis of knee (10/04/18) Provider Visit Care Team Role Provider Type Cyndie Tovar MD Family Provider Physician Primary Care Provider Specialty: Internal Medicine Address: [address] [place] [address], [id number] Email: Sidney Higgins MD Attending Provider Physician Specialty: Orthopedic Surgery Address: [address] [place] [address], [id number] Email: [email or web address] Plan Of Care PT-OP-T Assessment and Plan Start: 08/11/18 09:43 Freq: Status: Active Protocol: Document 10/04/18 13:48 [facility] (Rec: 10/04/18 14:29 [facility] [id number]) Physical Therapy Assessment Goals Five Impairment No HEP in place 3 wks post op Snf Goal (LTG) Patient will exhibit safe HEP 3 wks post op LTG Duration 09/13/18-achieved advancing as needed Four Impairment Deacresed right knee strength Snf Goal (LTG) Patient will increase right knee extensors to functional level LTG Duration achieved Three Impairment Decreased ambulation tolerance Snf Goal (LTG) Patient will ambulate > 10 mins with no AD indep on flat surface LTG Duration 10/17/18-improving Two Impairment Step to stairs gait pattern Snf Goal (LTG) Patient will exhibit alternating steps with no AD indep LTG Duration 11/14/18-improving One Impairment LEFS 33/80 Quill Skinner Goal (LTG) LEFS results of 50/80 LTG Duration 11/14/18 Assessment Summary Assessment Pt is making excellent progress towards goals. She cont to advance in strength & ROM and is now amb without AD. She cont to have mild gait deviations and has ROM and strength limitations that cont to limit functional activities. Physical Therapy Plan Frequency and Duration Frequency of Treatment 1-2x/Week Duration of Treatment 2 months Plan of Care Start Date 10/04/18 Plan of Care End Date 12/02/18 Therapeutic Interventions Therapeutic Interventions Balance Training Gait Training Home Exercise Program Joint Mobilizations Manual Therapy Patient/Caregiver Education Self-Care/Home Management Soft Tissue Mobilization Taping Therapeutic Activities Therapeutic Exercises Modalities Cold Pack/Ice Massage Electric Stimulation Hot Packs Ultrasound Next Visit Focus/Plan Next Note Type Treatment Note Next Visit Plan Cont to advance gait & abd & ext strength Plan of Care Dates Plan of Care Start Date 10/04/18 Plan of Care End Date 12/02/18 Please Sign and Return: I have reviewed this Plan of Care and certify that the skilled therapy services above are required to meet the patient?s needs. Physician Signature Date Printed Name and Credentials Clinical Instructor Signature Printed Name and Credentials
--- NOTE | 2018-10-15 09:49 | PT.OTN ---
Current Diagnoses Bilateral primary osteoarthritis of knee (10/15/18) Physical Therapy Treatment Note PT-OP-A Visit Information Start: 08/11/18 09:43 Freq: Status: Active Protocol: Document 10/15/18 08:42 [facility] (Rec: 10/15/18 09:49 [facility] [id number]) Out-Patient Physical Therapy Visit Information Visit Information Visit Type Treatment Note Visit Start Time 08:55 Visit Stop Time 09:35 Total Visit Minutes 40 Visit Number 9 PT-OP-B Current Condition Start: 08/11/18 09:43 Freq: Status: Active Protocol: Document 08/30/18 13:46 [facility] (Rec: 08/30/18 14:30 [facility] [id number]) Current Condition History of Current Condition Onset Date 2 years ago Current Complaints R TKA pre-op History of Current Condition Present right knee pain complaint started < 2 years ago with no history of injury or previous surgery. Patient mentioned that she had formal PT for a right hamstring injury on October/2017 up to to May 2018 and had 85 % recovered; states right knee pain due to arthritis was not resolved during the PT. Patient reports she is scheduled for a right TKA surgery this coming 08/23/18. Prior Treatments and Tests - May 2018 [facility] PT for right hamstring injury. Future Testing and Treatments Planned Right TKA 08/23/18 performed - pt to follow up with MD PT-OP-C Subjective Start: 08/11/18 09:43 Freq: Status: Active Protocol: Document 10/15/18 08:42 [facility] (Rec: 10/15/18 09:49 [facility] [id number]) OP-PT Subjective Patient Comments Patient Comments Pt reports she drove to [facility] and was able to do 2 hours of walking around. She notes the walking didn't bother her but the driving did . She still does step to most of the time up/down stairs. Reports the resistance band with hip ext and possibly abd were bothering her back so she stopped. Its getting easier to get up/down from chairs. MD did release her Patient Reported Progress Improving PT-OP-D Balance Start: 08/11/18 09:43 Freq: Status: Active Protocol: Document 08/11/18 16:00 EA (Rec: 08/12/18 08:39 EA [id number]) Balance Tests Single Limb Standing Single Limb- Right unable Single Limb- Left <5 secs PT-OP-F Manual Assessment Start: 08/11/18 09:43 Freq: Status: Active Protocol: Document 08/11/18 16:00 EA (Rec: 08/12/18 07:28 EA [id number]) Manual Assessments Soft Tissue Assessment Soft Tissue Mobility Assessment Tightness to right quads, hamstring and calf Joint Mobility Assessment Joint Mobility Assessment Hypho mobile to right Tibio femoral joint PT-OP-G Mobility & Gait Start: 08/11/18 09:43 Freq: Status: Active Protocol: Document 08/30/18 13:46 [facility] (Rec: 08/30/18 14:30 [facility] [id number]) OP Gait Assessment Comments Gait Comments Amb with FWW with step to gait PT-OP-J Posture/Palpation/Skin Start: 08/11/18 09:43 Freq: Status: Active Protocol: Document 08/11/18 16:00 EA (Rec: 08/12/18 08:39 EA [id number]) Palpation Assessment Location One Palpation Location righ quads, hamstring, calf Palpation Findings Soft Tissue Tightness Tenderness PT-OP-K Range of Motion Start: 08/11/18 09:43 Freq: Status: Active Protocol: Document 08/30/18 13:46 [facility] (Rec: 08/30/18 14:30 [facility] [id number]) Knee Goniometric Range of Motion Knee Measured in Degrees Right Patient Position Supine Flexion Active (degrees) 65 Extension Active (degrees) 10 PT-OP-M Strength Start: 08/11/18 09:43 Freq: Status: Active Protocol: Document 08/30/18 13:46 [facility] (Rec: 08/30/18 14:30 [facility] [id number]) Hip Strength Hip Manual Muscle Testing Left Flexion (L2) 5 Normal Right Flexion (L2) 3- Fair- Knee Strength Knee Manual Muscle Testing Right Flexion (S2) 3+ Fair+ Extension (L3) 3- Fair- Comments pain PT-OP-Q Treatments Start: 08/11/18 09:43 Freq: Status: Active Protocol: Document 10/15/18 08:42 [facility] (Rec: 10/15/18 09:49 [facility] [id number]) Cardio Equipment Recumbent Bicycle Duration (Minutes) 5 Resistance 4 Seat Position 10 Gym Equipment Shuttle Recovery Unilateral Squats Resistance 50 Shuttle Recovery Platform Stable Reps/Time 2x15 Bilateral Squats Resistance 100 Shuttle Recovery Platform Stable Reps/Time 30 Therapeutic Exercises Supine Exercises lilly test Supine Exercise Name quad stretch Side right Reps/Minutes 30 sec Standing Exercises gait press at wall Standing Exercise Name for R post depression & ext strength Reps/Minutes 10 sec hold sit<>stand Standing Exercise Name minisquat over chair Reps/Minutes 15 heel raises Standing Exercise Name progression to 75% of weight to RLE Reps/Minutes 15 Comments unable to do single leg Gait Training Gait Activity stairs Description 4 in then 6 in Comments Able to do reciprocal with min 1 rail use wiht 4 in then single step up/down 4 in step w/rail; then 6 in step reciprocal with limited rail use and cueing; Manual Therapy Treatment Soft Tissue Mobilization scar Body Location scar Mobilization Type Myofascial Release Intensity/Depth Superficial Manual Techniques ext Type stretch into ext Comments in supine and with hold relax HS stretching PT-OP-R Modalities Start: 08/11/18 09:43 Freq: Status: Active Protocol: Document 09/06/18 11:23 [facility] (Rec: 09/06/18 12:04 [facility] [id number]) Hot Pack/Cold Pack Treatment cryocuff Location R knee Treatment Duration (minutes) 10 Comments ice back behind knee also and leg elevated PT-OP-T Assessment and Plan Start: 08/11/18 09:43 Freq: Status: Active Protocol: Document 10/15/18 08:42 [facility] (Rec: 10/15/18 09:49 [facility] [id number]) Physical Therapy Assessment Goals Five Impairment No HEP in place 3 wks post op Supervisor Microwave Goal (LTG) Patient will exhibit safe HEP 3 wks post op LTG Duration 09/13/18-achieved advancing as needed Four Impairment Deacresed right knee strength Halfway Goal (LTG) Patient will increase right knee extensors to functional level LTG Duration achieved Three Impairment Decreased ambulation tolerance Halfway Goal (LTG) Patient will ambulate > 10 mins with no AD indep on flat surface LTG Duration 10/17/18-improving Two Impairment Step to stairs gait pattern Supervisor Microwave Goal (LTG) Patient will exhibit alternating steps with no AD indep LTG Duration 11/14/18-improving One Impairment LEFS 33/80 Supervisor Microwave Goal (LTG) LEFS results of 50/80 LTG Duration 11/14/18 Assessment Summary Assessment Pt had 5-115 ROM at start of session and able to achieve full ext after manual work. She has significant scar tissue tightness and was educated on how to do self scar mobs. Physical Therapy Plan Frequency and Duration Frequency of Treatment 1-2x/Week Duration of Treatment 2 months Plan of Care Start Date 10/04/18 Plan of Care End Date 12/02/18 Next Visit Focus/Plan Next Note Type Treatment Note Next Visit Plan balance and advance abd & glute strength
--- NOTE | 2018-11-04 08:44 | PT.OTN ---
Current Diagnoses Bilateral primary osteoarthritis of knee (11/04/18) Physical Therapy Treatment Note PT-OP-A Visit Information Start: 08/11/18 09:43 Freq: Status: Active Protocol: Document 11/04/18 07:27 [facility] (Rec: 11/04/18 08:43 [facility] [id number]) Out-Patient Physical Therapy Visit Information Visit Information Visit Type Treatment Note Visit Start Time 07:30 Visit Stop Time 08:15 Total Visit Minutes 45 Visit Number 10 PT-OP-B Current Condition Start: 08/11/18 09:43 Freq: Status: Active Protocol: Document 08/30/18 13:46 [facility] (Rec: 08/30/18 14:30 [facility] [id number]) Current Condition History of Current Condition Onset Date 2 years ago Current Complaints R TKA pre-op History of Current Condition Present right knee pain complaint started < 2 years ago with no history of injury or previous surgery. Patient mentioned that she had formal PT for a right hamstring injury on October/2017 up to to May 2018 and had 85 % recovered; states right knee pain due to arthritis was not resolved during the PT. Patient reports she is scheduled for a right TKA surgery this coming 08/23/18. Prior Treatments and Tests - May 2018 [facility] PT for right hamstring injury. Future Testing and Treatments Planned Right TKA 08/23/18 performed - pt to follow up with MD PT-OP-C Subjective Start: 08/11/18 09:43 Freq: Status: Active Protocol: Document 11/04/18 07:27 [facility] (Rec: 11/04/18 08:43 [facility] [id number]) OP-PT Subjective Patient Comments Patient Comments Pt reports she had 2 weeks of back spasm with allthe snow and cold, but is okay today. Pt reports pain started a day or so after last session. She hasn't been great about her exercises d/t back pain. PT-OP-D Balance Start: 08/11/18 09:43 Freq: Status: Active Protocol: Document 08/11/18 16:00 EA (Rec: 08/12/18 08:39 EA [id number]) Balance Tests Single Limb Standing Single Limb- Right unable Single Limb- Left <5 secs PT-OP-F Manual Assessment Start: 08/11/18 09:43 Freq: Status: Active Protocol: Document 08/11/18 16:00 EA (Rec: 08/12/18 07:28 EA [id number]) Manual Assessments Soft Tissue Assessment Soft Tissue Mobility Assessment Tightness to right quads, hamstring and calf Joint Mobility Assessment Joint Mobility Assessment Hypho mobile to right Tibio femoral joint PT-OP-G Mobility & Gait Start: 08/11/18 09:43 Freq: Status: Active Protocol: Document 08/30/18 13:46 [facility] (Rec: 08/30/18 14:30 [facility] [id number]) OP Gait Assessment Comments Gait Comments Amb with FWW with step to gait PT-OP-J Posture/Palpation/Skin Start: 08/11/18 09:43 Freq: Status: Active Protocol: Document 08/11/18 16:00 EA (Rec: 08/12/18 08:39 EA [id number]) Palpation Assessment Location One Palpation Location righ quads, hamstring, calf Palpation Findings Soft Tissue Tightness Tenderness PT-OP-K Range of Motion Start: 08/11/18 09:43 Freq: Status: Active Protocol: Document 08/30/18 13:46 [facility] (Rec: 08/30/18 14:30 [facility] [id number]) Knee Goniometric Range of Motion Knee Measured in Degrees Right Patient Position Supine Flexion Active (degrees) 65 Extension Active (degrees) 10 PT-OP-M Strength Start: 08/11/18 09:43 Freq: Status: Active Protocol: Document 08/30/18 13:46 [facility] (Rec: 08/30/18 14:30 [facility] [id number]) Hip Strength Hip Manual Muscle Testing Left Flexion (L2) 5 Normal Right Flexion (L2) 3- Fair- Knee Strength Knee Manual Muscle Testing Right Flexion (S2) 3+ Fair+ Extension (L3) 3- Fair- Comments pain PT-OP-Q Treatments Start: 08/11/18 09:43 Freq: Status: Active Protocol: Document 11/04/18 07:27 [facility] (Rec: 11/04/18 08:43 [facility] [id number]) Cardio Equipment Recumbent Bicycle Duration (Minutes) 6 Resistance 5 Seat Position 10 Therapeutic Exercises Sidelying Exercises quad Sidelying Exercise Name stretch w/ gait belt Reps/Minutes 30 sec Standing Exercises SLS Standing Exercise Name SLS Side bilateral squat Standing Exercise Name squat at sink Reps/Minutes 10 Comments focus on glute contraction Manual Therapy Treatment Soft Tissue Mobilization med knee Body Location Med knee into add & VMO Mobilization Type Rolling Intensity/Depth Moderate Body Position Supine Joint Mobilizations tibfem Joint TF Direction AP on tibia FM PF Joint PF Direction sup, inf, med PT-OP-R Modalities Start: 08/11/18 09:43 Freq: Status: Active Protocol: Document 09/06/18 11:23 [facility] (Rec: 09/06/18 12:04 [facility] [id number]) Hot Pack/Cold Pack Treatment cryocuff Location R knee Treatment Duration (minutes) 10 Comments ice back behind knee also and leg elevated PT-OP-T Assessment and Plan Start: 08/11/18 09:43 Freq: Status: Active Protocol: Document 11/04/18 07:27 [facility] (Rec: 11/04/18 08:43 [facility] [id number]) Physical Therapy Assessment Goals Five Impairment No HEP in place 3 wks post op Senior Living Goal (LTG) Patient will exhibit safe HEP 3 wks post op LTG Duration 09/13/18-achieved advancing as needed Four Impairment Deacresed right knee strength [facility] Living Goal (LTG) Patient will increase right knee extensors to functional level LTG Duration achieved Three Impairment Decreased ambulation tolerance Solder Making Supervisor Goal (LTG) Patient will ambulate > 10 mins with no AD indep on flat surface LTG Duration achieved Two Impairment Step to stairs gait pattern [facility] Goal (LTG) Patient will exhibit alternating steps with no AD indep LTG Duration 11/14/18-improving One Impairment LEFS 33/80 Solder Making Supervisor Goal (LTG) LEFS results of 50/80 LTG Duration 11/14/18 Assessment Summary Assessment Pt is improving with functional mobility, but is still limited by some stiffness of knee. Pt started with 5-120 today and improved to 3-125. Physical Therapy Plan Frequency and Duration Frequency of Treatment 1-2x/Week Duration of Treatment 2 months Plan of Care Start Date 10/04/18 Plan of Care End Date 12/02/18 Next Visit Focus/Plan Next Note Type Treatment Note Next Visit Plan cont to advance abd and glute strength, balance stability
--- NOTE | 2018-11-22 11:15 | PT.OTN ---
Current Diagnoses Bilateral primary osteoarthritis of knee (11/22/18) Physical Therapy Treatment Note PT-OP-A Visit Information Start: 08/11/18 09:43 Freq: Status: Active Protocol: Document 11/22/18 10:35 [facility] (Rec: 11/22/18 11:15 [facility] [id number]) Out-Patient Physical Therapy Visit Information Visit Information Visit Type Treatment Note Visit Start Time 10:30 Visit Stop Time 11:15 Total Visit Minutes 45 Visit Number 11 PT-OP-B Current Condition Start: 08/11/18 09:43 Freq: Status: Active Protocol: Document 08/30/18 13:46 [facility] (Rec: 08/30/18 14:30 [facility] [id number]) Current Condition History of Current Condition Onset Date 2 years ago Current Complaints R TKA pre-op History of Current Condition Present right knee pain complaint started < 2 years ago with no history of injury or previous surgery. Patient mentioned that she had formal PT for a right hamstring injury on October/2017 up to to May 2018 and had 85 % recovered; states right knee pain due to arthritis was not resolved during the PT. Patient reports she is scheduled for a right TKA surgery this coming 08/23/18. Prior Treatments and Tests - May 2018 [facility] PT for right hamstring injury. Future Testing and Treatments Planned Right TKA 08/23/18 performed - pt to follow up with MD PT-OP-C Subjective Start: 08/11/18 09:43 Freq: Status: Active Protocol: Document 11/22/18 10:35 [facility] (Rec: 11/22/18 11:15 [facility] [id number]) OP-PT Subjective Patient Comments Patient Comments Pt reprots she was sick for the past 2 weeks. Feels like she may be ready to be done. PT-OP-D Balance Start: 08/11/18 09:43 Freq: Status: Active Protocol: Document 08/11/18 16:00 EA (Rec: 08/12/18 08:39 EA [id number]) Balance Tests Single Limb Standing Single Limb- Right unable Single Limb- Left <5 secs PT-OP-F Manual Assessment Start: 08/11/18 09:43 Freq: Status: Active Protocol: Document 08/11/18 16:00 EA (Rec: 08/12/18 07:28 EA [id number]) Manual Assessments Soft Tissue Assessment Soft Tissue Mobility Assessment Tightness to right quads, hamstring and calf Joint Mobility Assessment Joint Mobility Assessment Hypho mobile to right Tibio femoral joint PT-OP-G Mobility & Gait Start: 08/11/18 09:43 Freq: Status: Active Protocol: Document 08/30/18 13:46 [facility] (Rec: 08/30/18 14:30 [facility] [id number]) OP Gait Assessment Comments Gait Comments Amb with FWW with step to gait PT-OP-J Posture/Palpation/Skin Start: 08/11/18 09:43 Freq: Status: Active Protocol: Document 08/11/18 16:00 EA (Rec: 08/12/18 08:39 EA [id number]) Palpation Assessment Location One Palpation Location righ quads, hamstring, calf Palpation Findings Soft Tissue Tightness Tenderness PT-OP-K Range of Motion Start: 08/11/18 09:43 Freq: Status: Active Protocol: Document 11/22/18 10:35 [facility] (Rec: 11/22/18 11:15 [facility] [id number]) Knee Goniometric Range of Motion Knee Measured in Degrees Right Flexion Active (degrees) 122 Extension Active (degrees) 2 PT-OP-M Strength Start: 08/11/18 09:43 Freq: Status: Active Protocol: Document 11/22/18 10:35 [facility] (Rec: 11/22/18 11:15 [facility] [id number]) Hip Strength Hip Manual Muscle Testing Left Flexion (L2) 5 Normal Extension (S1) 4- Good- Abduction 4+ Good+ External Rotation 4+ Good+ Internal Rotation 5 Normal Right Flexion (L2) 5 Normal Extension (S1) 4- Good- Abduction 4+ Good+ Adduction 4+ Good+ External Rotation 4 Good Internal Rotation 4+ Good+ Knee Strength Knee Manual Muscle Testing Right Flexion (S2) 5 Normal Extension (L3) 5 Normal Left Flexion (S2) 5 Normal Extension (L3) 5 Normal Ankle/Foot Strength Ankle and Foot Manual Muscle Testing Left Dorsiflexion (L4) 5 Normal Plantarflexion (S1) 5 Normal Right Dorsiflexion (L4) 5 Normal Plantarflexion (S1) 5 Normal PT-OP-Q Treatments Start: 08/11/18 09:43 Freq: Status: Active Protocol: Document 11/22/18 10:35 [facility] (Rec: 11/22/18 11:15 [facility] [id number]) Cardio Equipment Recumbent Bicycle Duration (Minutes) 6 Resistance 5 Seat Position 10 Gym Equipment Shuttle Balance red clips Details fwd & side: WBOS & NBOS Therapeutic Exercises Sidelying Exercises clamshell Sidelying Exercise Name clamshell Side right Equipment Used Lvl 1 Reps/Minutes 20 hip abd Sidelying Exercise Name abd Side right Reps/Minutes 10 Standing Exercises lunges Standing Exercise Name lunges Side bilateral Reps/Minutes 2x5 SLS Standing Exercise Name SLS Side bilateral squat Standing Exercise Name squat at sink Reps/Minutes 10 Comments focus on glute contraction heel raises Standing Exercise Name SINGLE Side bilateral Reps/Minutes 20 Manual Therapy Treatment Joint Mobilizations tibfem Joint TF Direction AP on tibia FM Manual Techniques ext Type stretch into ext Comments in supine and with hold relax HS stretching PT-OP-R Modalities Start: 08/11/18 09:43 Freq: Status: Active Protocol: Document 09/06/18 11:23 [facility] (Rec: 09/06/18 12:04 [facility] [id number]) Hot Pack/Cold Pack Treatment cryocuff Location R knee Treatment Duration (minutes) 10 Comments ice back behind knee also and leg elevated PT-OP-T Assessment and Plan Start: 08/11/18 09:43 Freq: Status: Active Protocol: Document 11/22/18 10:35 [facility] (Rec: 11/22/18 11:15 [facility] [id number]) Physical Therapy Assessment Goals Five Impairment No HEP in place 3 wks post op Care Home Goal (LTG) Patient will exhibit safe HEP 3 wks post op LTG Duration achieved Three Impairment Decreased ambulation tolerance Terrazzo Worker Apprentice Goal (LTG) Patient will ambulate > 10 mins with no AD indep on flat surface LTG Duration achieved Two Impairment Step to stairs gait pattern Terrazzo Worker Apprentice Goal (LTG) Patient will exhibit alternating steps with no AD indep LTG Duration achieved One Impairment LEFS 33/80 Terrazzo Worker Apprentice Goal (LTG) LEFS results of 50/80 LTG Duration achieved Assessment Summary Assessment Pt has met all goals at this time and is progressing well with mobility. She has no difficulties at home and cont to advance in strength with HEP. Pt has been compliant with HEP and understands importance of continueing. Physical Therapy Plan Discharge Physical Therapy Discharge Reasons Goals Met
--- NOTE | 2018-11-22 11:15 | PT.OPDS ---
Current Diagnoses Bilateral primary osteoarthritis of knee (11/22/18) Provider Visit Care Team Role Provider Type Cyndie Tovar MD Family Provider Physician Primary Care Provider Specialty: Internal Medicine Address: [address] [place] [address], [id number] Email: Sidney Higgins MD Attending Provider Physician Specialty: Orthopedic Surgery Address: [address] [place] [address], [id number] Email: [email or web address] Visit Number Visit Number 11 Discharge Summary PT-OP-B Current Condition Start: 08/11/18 09:43 Freq: Status: Active Protocol: Document 08/30/18 13:46 LR (Rec: 08/30/18 14:30 [facility] [id number]) Current Condition History of Current Condition Onset Date 2 years ago Current Complaints R TKA pre-op History of Current Condition Present right knee pain complaint started < 2 years ago with no history of injury or previous surgery. Patient mentioned that she had formal PT for a right hamstring injury on October/2017 up to to May 2018 and had 85 % recovered; states right knee pain due to arthritis was not resolved during the PT. Patient reports she is scheduled for a right TKA surgery this coming 08/23/18. Prior Treatments and Tests - May 2018 [facility] PT for right hamstring injury. Future Testing and Treatments Planned Right TKA 08/23/18 performed - pt to follow up with MD PT-OP-C Subjective Start: 08/11/18 09:43 Freq: Status: Active Protocol: Document 11/22/18 10:35 LR (Rec: 11/22/18 11:15 [facility] [id number]) OP-PT Subjective Patient Comments Patient Comments Pt reprots she was sick for the past 2 weeks. Feels like she may be ready to be done. PT-OP-D Balance Start: 08/11/18 09:43 Freq: Status: Active Protocol: Document 08/11/18 16:00 EA (Rec: 08/12/18 08:39 EA [id number]) Balance Tests Single Limb Standing Single Limb- Right unable Single Limb- Left <5 secs PT-OP-F Manual Assessment Start: 08/11/18 09:43 Freq: Status: Active Protocol: Document 08/11/18 16:00 EA (Rec: 08/12/18 07:28 EA [id number]) Manual Assessments Soft Tissue Assessment Soft Tissue Mobility Assessment Tightness to right quads, hamstring and calf Joint Mobility Assessment Joint Mobility Assessment Hypho mobile to right Tibio femoral joint PT-OP-G Mobility & Gait Start: 08/11/18 09:43 Freq: Status: Active Protocol: Document 08/30/18 13:46 LRH (Rec: 08/30/18 14:30 LR [id number]) OP Gait Assessment Comments Gait Comments Amb with FWW with step to gait PT-OP-J Posture/Palpation/Skin Start: 08/11/18 09:43 Freq: Status: Active Protocol: Document 08/11/18 16:00 EA (Rec: 08/12/18 08:39 EA [id number]) Palpation Assessment Location One Palpation Location righ quads, hamstring, calf Palpation Findings Soft Tissue Tightness Tenderness PT-OP-K Range of Motion Start: 08/11/18 09:43 Freq: Status: Active Protocol: Document 11/22/18 10:35 LR (Rec: 11/22/18 11:15 [facility] [id number]) Knee Goniometric Range of Motion Knee Measured in Degrees Right Flexion Active (degrees) 122 Extension Active (degrees) 2 PT-OP-M Strength Start: 08/11/18 09:43 Freq: Status: Active Protocol: Document 11/22/18 10:35 LR (Rec: 11/22/18 11:15 [facility] [id number]) Hip Strength Hip Manual Muscle Testing Left Flexion (L2) 5 Normal Extension (S1) 4- Good- Abduction 4+ Good+ External Rotation 4+ Good+ Internal Rotation 5 Normal Right Flexion (L2) 5 Normal Extension (S1) 4- Good- Abduction 4+ Good+ Adduction 4+ Good+ External Rotation 4 Good Internal Rotation 4+ Good+ Knee Strength Knee Manual Muscle Testing Right Flexion (S2) 5 Normal Extension (L3) 5 Normal Left Flexion (S2) 5 Normal Extension (L3) 5 Normal Ankle/Foot Strength Ankle and Foot Manual Muscle Testing Left Dorsiflexion (L4) 5 Normal Plantarflexion (S1) 5 Normal Right Dorsiflexion (L4) 5 Normal Plantarflexion (S1) 5 Normal PT-OP-T Assessment and Plan Start: 08/11/18 09:43 Freq: Status: Active Protocol: Document 11/22/18 10:35 [facility] (Rec: 11/22/18 11:15 [facility] [id number]) Physical Therapy Assessment Goals Five Impairment No HEP in place 3 wks post op Site Leasing Agent Goal (LTG) Patient will exhibit safe HEP 3 wks post op LTG Duration achieved Three Impairment Decreased ambulation tolerance Site Leasing Agent Goal (LTG) Patient will ambulate > 10 mins with no AD indep on flat surface LTG Duration achieved Two Impairment Step to stairs gait pattern Mcfp Goal (LTG) Patient will exhibit alternating steps with no AD indep LTG Duration achieved One Impairment LEFS 33/80 Site Leasing Agent Goal (LTG) LEFS results of 50/80 LTG Duration achieved Assessment Summary Assessment Pt has met all goals at this time and is progressing well with mobility. She has no difficulties at home and cont to advance in strength with HEP. Pt has been compliant with HEP and understands importance of continueing. Physical Therapy Plan Discharge Physical Therapy Discharge Reasons Goals Met
== END 2018-11-23 16:45 | disposition home or self-care (01) ==
LOC: PHYS 10:30
PROVIDERS: Family Provider Internal Medicine; PCP Internal Medicine; Visit Provider Orthopaedic Surgery
DX: M17.0 Bilateral primary osteoarthritis of knee (principal)
CPT/HCPCS: 97110; 97112; 97116; 97140; 97162; 97535

== ENCOUNTER → 2019-04-22 12:32 | Outpatient (CLI) | payer OTHER, MEDICAID, SELFPAY ==
[2018-08-23 16:33] VITALS: BMI 38.2
--- NOTE | 2019-04-22 | DI.MG.S_ITS ---
BILATERAL DIGITAL SCREENING MAMMOGRAM 3D/2D WITH CAD: 04/22/2019 CLINICAL: Routine screening. Comparison is made to exams dated: 04/05/2018 mammogram, 10/20/2016 mammogram, 04/14/2016 mammogram, and 03/31/2016 mammogram - [facility]. The tissue of both breasts is predominantly fatty. Current study was also evaluated with a Computer Aided Detection (CAD) system. No significant masses, calcifications, or other findings are seen in either breast. There has been no significant interval change. IMPRESSION: NEGATIVE There is no mammographic evidence of malignancy. A 1 year screening mammogram is recommended. This exam was interpreted at Station ID: [id number]. NOTE: For mammograms, a report in lay terms will be sent to the patient. Approximately 15% of breast malignancies will not be visualized mammographically. In the management of a palpable breast mass, a negative mammogram must not discourage biopsy of a clinically suspicious lesion. Electronically Signed By: Gonzalez ko/ishan:04/22/2019 13:31:38 letter sent: Normal Exam ACR BI-RADS Category 1: Negative [id number]
== END ==
PROVIDERS: PCP Internal Medicine; Visit Provider Internal Medicine
DX: Z12.31 Encounter for screening mammogram for malignant neoplasm of breast (principal)
CPT/HCPCS: 77063; 77067

== ENCOUNTER 2019-08-28 09:25 | Emergency (ER) | payer OTHER, MEDICAID, SELFPAY ==
[2018-08-23 16:33] VITALS: BMI 38.2
[2019-08-28 09:43] VITALS: BP 166/91; PULSE 95; RESP 17; TEMP 37.1; O2SAT 97; BMI 39.3
--- NOTE | 2019-08-28 09:45 | ED_ITS ---
HPI - URI/Sore Throat General Chief Complaint: Upper Respiratory Symptoms Stated Complaint: POSSIBLE RSV Time Seen by Provider: 08/28/19 09:44 Source: patient Mode of arrival: Ambulatory Limitations: no limitations History of Present Illness HPI Narrative: PATIENT IS A 63-YEAR-OLD female who presents with upper respiratory like symptoms ongoing for the last 11 days. She was exposed to grandchild who who was diagnosed with RSV. She coughs every time she takes a deep breath her coughing is worse at night she has postnasal drainage. Doesn't really have body aches not sure that she has had a fever she does have a mildly sore throat. During the days she says she overall feels okay. Complaint: cough, sore throat and rhinorrhea Onset (ago): day(s) () Duration: constant Relieving factors: nothing Exacerbating factors: nothing Related Data Home Medications Medication Instructions Recorded Confirmed meloxicam 15 mg PO DAILY 08/10/18 08/23/18 metoprolol succinate 50 mg PO QAM 08/10/18 08/23/18 sertraline 25 mg PO DAILY 08/10/18 08/23/18 tizanidine 4 mg PO TID PRN 08/10/18 08/23/18 Previous Rx's Medication Instructions Recorded acetaminophen 975 mg PO TID #30 tab 08/25/18 aspirin 81 mg PO BID #60 tab 08/25/18 hydrocodone-acetaminophen 2 tab PO Q4HR PRN #40 tab 08/25/18 ketorolac 10 mg PO Q6HR PRN #12 tab 08/25/18 albuterol sulfate 0.63 mg INHALATION QID PRN #75 ml 08/28/19 Allergies Allergy/AdvReac Type Severity Reaction Status Date / Time oxycodone [From Percocet] AdvReac Severe Makes me Verified 08/10/18 10:05 higher than a kite, don't like that meperidine [From Demerol] AdvReac Mild Vomiting Verified 08/10/18 10:05 Review of Systems Review of Systems Narrative: GENERAL: Denies chills, fatigue, malaise, fever, sweats, travel HEENT: Denies sinus pain, ear pain, sore throat, difficulty swallowing, neck pain RESPIRATORY: See HPI CARDIOVASCULAR: Denies chest pain, palpitations, orthopnea, edema GASTROINTESTINAL: Denies nausea, vomiting, abdominal pain, diarrhea, constipation, melena. : Denies dysuria, frequency, incontinence, hematuria, urinary retention, flank pain. MUSCULOSKELETAL: Denies weakness, joint pain, or bony pain SKIN: No rash, no erythema, no pruritus NEUROLOGIC: Denies weakness, dizziness, headache, numbness, change in speech, confusion PSYCHIATRIC: No concerning psychosocial issues. 12 point review of systems is negative except for those stated above and HPI Patient History Medical History Chronic back pain (Acute) Depression (Acute) Easy bruisability (Acute) Hamstring injury (Acute) HTN (hypertension) (Acute) Numbness and tingling (Acute) Osteoarthritis (Acute) Spinal stenosis (Acute) Surgical History H/O removal of cyst (Acute) History of section (Acute ~1986) History of hysterectomy (Acute ~06/1994) History of surgical removal of pilonidal cyst (Acute) History of tonsillectomy and adenoidectomy (Acute) Hx of cholecystectomy (Acute) Hx of umbilical hernia repair (Acute) S/P left rotator cuff repair (Acute) Social History household members: family Smoking Status: Never smoker alcohol intake: never Smoking Status: Never smoker Substance Use Type: does not use Exam Initial Vital Signs Initial Vital Signs: Vital Signs Temperature 98.8 F 08/28/19 09:43 Pulse Rate 95 H 08/28/19 09:43 Respiratory Rate 17 08/28/19 09:43 Blood Pressure 166/91 H 08/28/19 09:43 Pulse Oximetry 97 08/28/19 09:43 GENERAL: Well-appearing, well-nourished and in no acute distress. HEENT: Head atraumatic,EOMI, pupils reactive, face symmetric, moist mucous membranes PHARYNX: Mild erythema no exudative tonsils, no uvula deviation CARDIOVASCULAR: Regular rate and rhythm without murmurs, rubs or gallops. RESPIRATORY: Clear bilaterally but coughs with deep breath ABDOMEN: Soft, nontender. Normoactive bowel sounds all 4 quadrants. No guarding or rebound. EXTREMITIES: Normal range of motion, no clubbing or edema. Neurovascularly intact NEUROLOGICAL: Alert and oriented x4.Normal gait and speech. SKIN: Warm, dry, no laceration, no petechiae, no rashes or lesions. Course Orders Ordered: ED Orders 08/28/19 09:35 Influenza A & B (PCR) Stat 08/28/19 09:49 Chest [XR chest 2V] Stat Discontinued Medications Albuterol (Ventolin) 2.5 mg INH NOW ONE Stop: 08/28/19 09:51 Last Admin: 08/28/19 09:59 Dose: 2.5 mg Documented by: MANUELA Vital Signs Vital signs: Vital Signs - 8 hr 08/28/19 09:43 08/28/19 10:03 08/28/19 11:03 Temperature 98.8 F 98.1 F Pulse Rate 95 H 88 Respiratory Rate 17 16 18 Blood Pressure 166/91 H 140/92 H Pulse Oximetry 97 96 MDM - URI/Sore Throat Lab Data Labs: Lab Results 08/28/19 Range/Units 09:35 Influenza A (RT-PCR) Flu a negative (NEGATIVE) Influenza B (RT-PCR) Flu b negative (NEGATIVE) Imaging Data Chest x-ray: Radiologist's Impression: PROCEDURE: XR CHEST 2V INDICATIONS: cough TECHNIQUE: 2 views of the chest were acquired. [facility], 8:18. FINDINGS: Surgical changes and devices: None. Lungs and pleura: Lungs are clear. No pleural effusions or pneumothorax. Mediastinum: Mediastinal contours are normal. Heart size is normal. Bones and chest wall: No suspicious bony abnormalities. Age-appropriate bony degenerative changes are seen. Accentuated thoracic kyphosis is seen. The Soft tissues appear unremarkable. IMPRESSION: No focal infiltrates are seen. Dictated by: Desmond Flynn M.D. on 08/28/2019 at 9:15 MDM Narrative Medical decision making narrative: She is feeling better after albuterol. Symptoms consistent with upper respiratory infection no pneumonia on x-ray and influenza is negative. Recommend supportive care. Respiratory is taught her how to use spacer and inhaler. Discharge Plan Departure Patient Disposition: Home Clinical Impression: Upper respiratory infection Qualifiers: URI type: unspecified viral URI Qualified Code(s): J06.9 - Acute upper respiratory infection, unspecified Discharge Date/Time: 08/28/19 11:03 Instructions: DI for Viral Upper Respiratory Infection -- Adult Activity Restrictions/Additional Instructions: *You have been diagnosed with upper respiratory infection *What to do: At this time no indication for antibiotics or chest x-ray is clear. Recommend supportive care rest fluids fever control *Continue to take medications as directed Albuterol at hour 1-2 puffs every 4 hours if needed for coughing spells or chest discomfort *Follow up with your primary care provider in 2-3 days *Return to ER if you should have increasing shortness of breath fever not controlled or any new, worsening or concerning symptoms Prescriptions: New albuterol sulfate 0.63 mg/3 mL solution for nebulization 0.63 mg INHALATION QID PRN (Reason: shortness of breath or wheezing) Qty: 75 RF: 0 No Action metoprolol succinate 50 mg Tablet Extended Release 24 Hr 50 mg PO QAM RF: 0 meloxicam 15 mg Tablet 15 mg PO DAILY RF: 0 sertraline 50 mg Tablet 25 mg PO DAILY RF: 0 tizanidine 4 mg Capsule 4 mg PO TID PRN (Reason: Muscle Spasm) RF: 0 acetaminophen 325 mg Tablet 975 mg PO TID Qty: 30 RF: 0 hydrocodone-acetaminophen 5-325 mg Tablet 2 tab PO Q4HR PRN (Reason: Pain, Moderate (4-6)) Qty: 40 RF: 0 aspirin 81 mg Tablet,Delayed Release (Dr/Ec) 81 mg PO BID Qty: 60 RF: 0 ketorolac 10 mg Tablet 10 mg PO Q6HR PRN (Reason: Mild Pain) Qty: 12 RF: 0 Referrals: Cyndie Tovar MD [Primary Care Provider] -
--- NOTE | 2019-08-28 09:49 | DI.RAD.S_ITS ---
PROCEDURE: XR CHEST 2V INDICATIONS: cough TECHNIQUE: 2 views of the chest were acquired. COMPARISON: [facility], , CHEST 1 VIEW, 06/04/2009, 8:18. FINDINGS: Surgical changes and devices: None. Lungs and pleura: Lungs are clear. No pleural effusions or pneumothorax. Mediastinum: Mediastinal contours are normal. Heart size is normal. Bones and chest wall: No suspicious bony abnormalities. Age-appropriate bony degenerative changes are seen. Accentuated thoracic kyphosis is seen. The Soft tissues appear unremarkable. IMPRESSION: No focal infiltrates are seen. Dictated by: Desmond Flynn M.D. on 08/28/2019 at 9:15 Approved by: Desmond Flynn M.D. on 08/28/2019 at 9:15
[2019-08-28] MEDS: ALBUTEROL 2.5 MG/3 ML NEB (ADULT) INH (09:59)
[2019-08-28 10:03] VITALS: RESP 16
[2019-08-28 10:33] LABS: Influenza A - CEPHEID Flu A NEGATIVE (NEGATIVE); Influenza B - CEPHEID Flu B NEGATIVE (NEGATIVE)
--- NOTE | 2019-08-28 10:58 | PC.NURSE ---
RT at bedside for spacer education
[2019-08-28 11:03] VITALS: BP 140/92; PULSE 88; RESP 18; TEMP 36.7; O2SAT 96
== END 2019-08-28 11:03 | disposition home or self-care (01) ==
PROVIDERS: Emergency Provider Emergency Medicine; PCP Internal Medicine
DX: J06.9 Acute upper respiratory infection, unspecified (principal)
CPT/HCPCS: 71046; 87502; 94640; 99283; J7613

== ENCOUNTER → 2019-10-20 07:54 | Outpatient (CLI) | payer OTHER, MEDICAID, SELFPAY ==
[2018-08-23 16:33] VITALS: BMI 38.2
[2019-10-20 09:21] LABS: BUN Creatinine Ratio 26.7 (6-22); Blood Urea Nitrogen 16 mg/dL (7-17); Calcium 9.5 mg/dL (8.4-10.2); Carbon Dioxide 28 mmol/L (22-32); Chloride 103 mmol/L (98-107); Cholesterol 205 mg/dL (140-199); Estimated Glomerular Filt Rate > 60.0 mL/min (>60); Glucose 115 mg/dL (80-110); HDL Cholesterol 35 mg/dL (40-60); HEMOLYSIS < 15 (0-50); LDL Cholesterol Calculated 141 mg/dL (<100); Potassium 4.4 mmol/L (3.4-5.1); Sodium 141 mmol/L (137-145); Triglycerides 146 mg/dL (35-150)
== END ==
PROVIDERS: PCP Internal Medicine; Referring Provider Internal Medicine; Visit Provider Internal Medicine
DX: I10 Essential (primary) hypertension (principal); E78.5 Hyperlipidemia, unspecified
CPT/HCPCS: 36415; 80048; 80061

== ENCOUNTER → 2020-08-09 10:02 | Outpatient (CLI) | payer OTHER, MEDICAID, SELFPAY ==
[2018-08-23 16:33] VITALS: BMI 38.2
--- NOTE | 2020-08-09 | DI.MG.S_ITS ---
BILATERAL DIGITAL SCREENING MAMMOGRAM 3D/2D WITH CAD: 08/09/2020 CLINICAL: Routine screening. Comparison is made to exams dated: 04/22/2019 mammogram, 04/05/2018 mammogram, and 03/31/2016 mammogram - [facility]. The tissue of both breasts is predominantly fatty. Current study was also evaluated with a Computer Aided Detection (CAD) system. There are mole markers on both breasts. No significant masses, calcifications, or other findings are seen in either breast. There has been no significant interval change. IMPRESSION: NEGATIVE There is no mammographic evidence of malignancy. A 1 year screening mammogram is recommended. This exam was interpreted at Station ID: [id number]. NOTE: For mammograms, a report in lay terms will be sent to the patient. Approximately 15% of breast malignancies will not be visualized mammographically. In the management of a palpable breast mass, a negative mammogram must not discourage biopsy of a clinically suspicious lesion. Electronically Signed By: Arsalan Erazo acr/penrad:08/09/2020 10:33:43 letter sent: Normal Exam ACR BI-RADS Category 1: Negative [id number]
== END ==
PROVIDERS: PCP Student in an Organized Health Care Education/Training Program; Referring Provider Student in an Organized Health Care Education/Training Program; Visit Provider Student in an Organized Health Care Education/Training Program
DX: Z12.31 Encounter for screening mammogram for malignant neoplasm of breast (principal)
CPT/HCPCS: 77063; 77067

== ENCOUNTER → 2020-09-27 09:20 | Outpatient (CLI) | payer OTHER, MEDICAID, SELFPAY ==
[2018-08-23 16:33] VITALS: BMI 38.2
[2020-09-27 10:41] LABS: BUN Creatinine Ratio 20.6 (6-22); Blood Urea Nitrogen 13 mg/dL (7-17); Calcium 9.6 mg/dL (8.4-10.2); Carbon Dioxide 28 mmol/L (22-32); Chloride 104 mmol/L (98-107); Estimated Glomerular Filt Rate > 60.0 mL/min (>60); Glucose 106 mg/dL (80-110); HEMOLYSIS < 15 (0-50); Potassium 4.5 mmol/L (3.4-5.1); Sodium 139 mmol/L (137-145)
[2020-09-27 11:37] LABS: Vitamin D 25 Hydroxy (D3) 38.8 ng/mL (30.0-100.0)
== END ==
PROVIDERS: PCP Student in an Organized Health Care Education/Training Program; Referring Provider Student in an Organized Health Care Education/Training Program; Visit Provider Student in an Organized Health Care Education/Training Program
DX: E55.9 Vitamin D deficiency, unspecified (principal); Z79.1 Long term (current) use of non-steroidal anti-inflammatories (NSAID)
CPT/HCPCS: 36415; 80048; 82306

== ENCOUNTER → 2021-12-05 09:52 | Outpatient (CLI) | payer OTHER, MEDICAID, SELFPAY ==
[2018-08-23 16:33] VITALS: BMI 38.2
[2021-12-05 11:09] LABS: BUN Creatinine Ratio 21.2 (6-22); Blood Urea Nitrogen 14 mg/dL (7-17); Carbon Dioxide 29 mmol/L (22-32); Chloride 104 mmol/L (98-107); Estimated Glomerular Filt Rate > 60 mL/min (>60); Glucose 95 mg/dL (80-110); HEMOLYSIS < 15 (0-50); Potassium 4.1 mmol/L (3.4-5.1); Sodium 142 mmol/L (137-145)
[2021-12-05 11:12] LABS: Hemoglobin A1C% w Est Avg Glu 5.5 % (4.0-6.0)
[2021-12-05 11:36] LABS: TSH w/ Reflex to FT4 3.02 uIU/mL (0.47-4.68)
== END ==
PROVIDERS: PCP Student in an Organized Health Care Education/Training Program; Referring Provider Student in an Organized Health Care Education/Training Program; Visit Provider Student in an Organized Health Care Education/Training Program
DX: E66.01 Morbid (severe) obesity due to excess calories (principal); I10 Essential (primary) hypertension; R60.9 Edema, unspecified
CPT/HCPCS: 36415; 80048; 83036; 84443

== ENCOUNTER 2021-12-14 15:50 | Emergency (ER) | payer OTHER, MEDICAID, SELFPAY ==
[2018-08-23 16:33] VITALS: BMI 38.2
[2021-12-14] VITALS (12 sets, daily range): BP systolic 147–182; BP diastolic 67–88; PULSE 61–78; RESP 13–25; TEMP 36.6; O2SAT 93–96; BMI 41.2
--- NOTE | 2021-12-14 15:55 | DI.RAD.S_ITS ---
PROCEDURE: XR CHEST 1V INDICATIONS: chest pain TECHNIQUE: One view of the chest was acquired. COMPARISON: [facility], CR, XR CHEST 2V, 08/28/2019, 9:49. FINDINGS: Surgical changes and devices: None. Lungs and pleura: Lungs are clear. No pleural effusions or pneumothorax. Mediastinum: Mediastinal contours appear normal. Heart size is normal. Atherosclerotic vascular calcification noted in the aortic arch. Bones and chest wall: No suspicious bony lesions. Overlying soft tissues appear unremarkable. IMPRESSION: No acute cardiopulmonary findings Approved by: Brendan Mcfarlane M.D. on 12/14/2021 at 16:05
[2021-12-14 16:37] LABS: Add Manual Diff / Slide Review NO; Alanine Aminotransferase 38 IU/L (<35); Albumin 4.4 g/dL (3.5-5.0); Albumin Globulin Ratio 1.2 (1.0-2.8); Alkaline Phosphatase 81 U/L (38-126); Aspartate Aminotransferase 34 IU/L (14-36); BUN Creatinine Ratio 24.2 (6-22); Basophils Absolute Auto 0 /uL (0-100); Basophils Percent Auto 0.5 % (0-2); Bilirubin Total 0.4 mg/dL (0.2-1.3); Blood Urea Nitrogen 15 mg/dL (7-17); Calcium 9.1 mg/dL (8.4-10.2); Carbon Dioxide 28 mmol/L (22-32); Chloride 105 mmol/L (98-107); Creatine Kinase 45 U/L (30-135); Eosinophils Absolute Auto 100 /uL (0-450); Eosinophils Percent Auto 1.1 % (2-4); Estimated Glomerular Filt Rate > 60 mL/min (>60); Globulin 3.7 g/dL (1.7-4.1); Glucose 92 mg/dL (80-110); HEMOLYSIS < 15 (0-50); Hematocrit 44.2 % (36-46); Lipase 106 U/L (23-300); Lymphocytes Absolute Auto 1700 /uL (1100-4500); Lymphocytes Percent Auto 19.5 % (25-40); Magnesium 2.1 mg/dL (1.6-2.3); Mean Corpuscular Hemoglobin 30.1 PG (26-34); Mean Corpuscular Volume 88.5 fL (80-100); Monocytes Absolute Auto 500 /uL (0-900); Monocytes Percent Auto 6.1 % (3-14); Neutrophils Absolute Auto 6200 /uL (1500-7000); Neutrophils Percent Auto 72.8 % (50-75); Platelet Count 264 X10^3/uL (150-400); Potassium 3.9 mmol/L (3.4-5.1); Red Cell Distribution Width 13.4 % (11.6-14.8); Sodium 141 mmol/L (137-145); Total Protein 8.1 g/dL (6.3-8.2); White Blood Cell Count 8.5 X10^3/uL (4.5-11.0)
[2021-12-14 16:48] LABS: Troponin I < 0.012 ng/mL (0.01-0.034)
[2021-12-14 17:19] LABS: NT-proBNP (BNP-Adult 18+) 22 pg/mL (<125)
--- NOTE | 2021-12-14 18:07 | PC.NURSE ---
Pt reports chest tightness subsiding. Takes metoprolol for blood pressure and has been taking as prescribed.
--- NOTE | 2021-12-14 18:32 | ED_ITS ---
HPI - General Adult General Chief complaint: Hypertension Stated complaint: extreme high BP. Tightness in chest Time Seen by Provider: 12/14/21 18:07 Source: patient Mode of arrival: Family Vehicle History of Present Illness HPI narrative: Patient is a 66-year-old female with a history of hypertension who is here for evaluation of elevated blood pressures and tightness in her chest and swelling in her feet and in her hands. Her symptoms have been going on for the past couple weeks. Since the onset of the symptoms she has seen her primary doctor. She is currently on 50 mg of metoprolol on a daily basis. During the last visit with her primary doctor the decision was made not to start her on any new medications but have her take her blood pressure at home and make any adjustments after period of time of checking her blood pressure. She states that she occasionally has some tightness in her chest. No shortness of breath. Is not having any tightness in her chest now. No fevers. His expressing swelling in her legs and in her hands although currently she states that it is better than what it was. She is taking all of her blood pressure medications as directed. Related Data Home Medications Medication Instructions Recorded Confirmed tizanidine 4 mg capsule 4 mg PO TID PRN 08/10/18 12/05/21 cholecalciferol (vitamin D3) 50 50 mcg PO DAILY 08/02/20 12/05/21 mcg (2,000 unit) capsule Previous Rx's Medication Instructions Recorded metoprolol succinate 50 mg 50 mg PO QAM #90 tab 02/21/21 tablet,extended release 24 hr meloxicam 15 mg tablet 15 mg PO DAILY #30 tab 11/18/21 hydrochlorothiazide 25 mg tablet 25 mg PO QAM #30 tab 12/14/21 Allergies Allergy/AdvReac Type Severity Reaction Status Date / Time oxycodone [From Percocet] AdvReac Severe Makes me Verified 12/14/21 16:02 higher than a kite, don't like that meperidine [From Demerol] AdvReac Mild Vomiting Verified 12/14/21 16:02 Review of Systems Constitutional Constitutional: Reports system reviewed and no additional complaints, except as documented Eyes Eyes: Reports system reviewed and no additional complaints, except as documented ENT Ears, Nose, Mouth, and Throat: Reports system reviewed and no additional complaints, except as documented Cardiovascular Cardiovascular: Reports as per HPI and Reports system reviewed and no additional complaints, except as documented Respiratory Respiratory: Reports as per HPI and Reports system reviewed and no additional complaints, except as documented Gastrointestinal Gastrointestinal: Reports as per HPI and Reports system reviewed and no additional complaints, except as documented Musculoskeletal Musculoskeletal: Reports system reviewed and no additional complaints, except as documented and Reports as per HPI Integumentary/Breasts Skin/Breast: Reports system reviewed and no additional complaints, except as documented and Reports as per HPI Neurologic Neurologic: Reports system reviewed and no additional complaints, except as documented Psychiatric Psychiatric: Reports system reviewed and no additional complaints, except as documented Hematologic/Lymphatic On Anticoagulants: No Allergic/Immunologic Allergic/Immunologic: Reports system reviewed and no additional complaints, except as documented Patient History Medical History Depression Easy bruisability Hamstring injury HTN (hypertension) Numbness and tingling Osteoarthritis Plantar fasciitis (12/16/02) Spinal stenosis Surgical History H/O removal of cyst History of section (~1986) History of hysterectomy (~06/1994) History of surgical removal of pilonidal cyst History of tonsillectomy and adenoidectomy Hx of cholecystectomy Hx of umbilical hernia repair S/P left rotator cuff repair Social History household members: family Smoking Status: Never smoker alcohol intake: never Smoking Status: Never smoker alcohol intake frequency: 0-2 drinks per day Substance Use Type: does not use Exam Initial Vital Signs Initial Vital Signs: Vital Signs Temperature 97.9 F 12/14/21 15:55 Pulse Rate 78 12/14/21 15:55 Respiratory Rate 20 12/14/21 15:55 Blood Pressure 163/88 H 12/14/21 15:55 Pulse Oximetry 96 12/14/21 15:55 Const General: cooperative, healthy appearing and comfortable HENMD Head: normal to inspection and normocephalic Eyes General: appearance normal, both eyes and all related structures Resp Effort & Inspection: normal respiratory effort Auscultation: clear to auscultation bilaterally Cardio Rate: regular rate Rhythm: regular rhythm GI Inspection: normal to inspection Skin General: no rashes or lesions noted Neuro General: patient alert, patient awake and moves all extremities Extrem General: normal to inspection and capillary refill normal Other: Minimal swelling bilateral feet. No swelling in hands Psych Appearance: grossly normal and well kempt Course Orders Ordered: ED Orders 12/14/21 19:10 Troponin I Stat Discontinued Medications Hydrochlorothiazide (Hydrochlorothiazide 25 Mg Tablet) 25 mg PO NOW ONE Stop: 12/14/21 20:41 Last Admin: 12/14/21 21:01 Dose: 25 mg Documented by: ATAYLOR Vital Signs Vital signs: Vital Signs - 8 hr 12/14/21 20:00 12/14/21 20:30 Pulse Rate 62 62 Respiratory Rate 19 21 Blood Pressure 147/70 H 148/67 H Pulse Oximetry 94 94 Medical Decision Making Lab Data Lab results reviewed: Yes I reviewed the patient's lab results. Result diagrams: 12/14/21 16:12 12/14/21 16:12 Labs: Lab Results 12/14/21 12/14/21 12/14/21 Range/Units 16:12 16:12 16:38 WBC 8.5 (4.5-11.0) X10^3/uL RBC 5.00 (4.0-5.2) X10^6/uL Hgb 15.0 (12.0-16.0) g/dL Hct 44.2 (36-46) % MCV 88.5 (80-100) fL MCH 30.1 (26-34) PG MCHC 34.0 (30-36) % RDW 13.4 (11.6-14.8) % Plt Count 264 (150-400) X10^3/uL Neut % (Auto) 72.8 (50-75) % Lymph % (Auto) 19.5 L (25-40) % [place] % (Auto) 6.1 (3-14) % Eos % (Auto) 1.1 L (2-4) % Baso % (Auto) 0.5 (0-2) % Neut # (Auto) 6200 (0717-0990) /uL Lymph # (Auto) 1700 (7413-2573) /uL [place] # (Auto) 500 (0-900) /uL Eos # (Auto) 100 (0-450) /uL Baso # (Auto) 0 (0-100) /uL Sodium 141 (137-145) mmol/L Potassium 3.9 (3.4-5.1) mmol/L Chloride 105 (98-107) mmol/L Carbon Dioxide 28 (22-32) mmol/L BUN 15 (7-17) mg/dL Creatinine 0.62 (0.52-1.04) mg/dL Estimated GFR > 60 (>60) mL/min BUN/Creatinine Ratio 24.2 H (6-22) Glucose 92 (80-110) mg/dL Calcium 9.1 (8.4-10.2) mg/dL Magnesium 2.1 (1.6-2.3) mg/dL Total Bilirubin 0.4 (0.2-1.3) mg/dL AST 34 (14-36) IU/L ALT 38 H (<35) IU/L Alkaline Phosphatase 81 (38-126) U/L Total Creatine Kinase 45 (30-135) U/L CK-MB (CK-2) TNP CK-MB (CK-2) Rel Index TNP Troponin I < 0.012 (0.01-0.034) ng/mL NT-Pro-B Natriuret Pep 22 (<125) pg/mL Total Protein 8.1 (6.3-8.2) g/dL Albumin 4.4 (3.5-5.0) g/dL Globulin 3.7 (1.7-4.1) g/dL Albumin/Globulin Ratio 1.2 (1.0-2.8) Lipase 106 (23-300) U/L 12/14/21 Range/Units 19:10 WBC (4.5-11.0) X10^3/uL RBC (4.0-5.2) X10^6/uL Hgb (12.0-16.0) g/dL Hct (36-46) % MCV (80-100) fL MCH (26-34) PG MCHC (30-36) % RDW (11.6-14.8) % Plt Count (150-400) X10^3/uL Neut % (Auto) (50-75) % Lymph % (Auto) (25-40) % [place] % (Auto) (3-14) % Eos % (Auto) (2-4) % Baso % (Auto) (0-2) % Neut # (Auto) (2109-0835) /uL Lymph # (Auto) (3977-5233) /uL [place] # (Auto) (0-900) /uL Eos # (Auto) (0-450) /uL Baso # (Auto) (0-100) /uL Sodium (137-145) mmol/L Potassium (3.4-5.1) mmol/L Chloride (98-107) mmol/L Carbon Dioxide (22-32) mmol/L BUN (7-17) mg/dL Creatinine (0.52-1.04) mg/dL Estimated GFR (>60) mL/min BUN/Creatinine Ratio (6-22) Glucose (80-110) mg/dL Calcium (8.4-10.2) mg/dL Magnesium (1.6-2.3) mg/dL Total Bilirubin (0.2-1.3) mg/dL AST (14-36) IU/L ALT (<35) IU/L Alkaline Phosphatase (38-126) U/L Total Creatine Kinase (30-135) U/L CK-MB (CK-2) CK-MB (CK-2) Rel Index Troponin I < 0.012 (0.01-0.034) ng/mL NT-Pro-B Natriuret Pep (<125) pg/mL Total Protein (6.3-8.2) g/dL Albumin (3.5-5.0) g/dL Globulin (1.7-4.1) g/dL Albumin/Globulin Ratio (1.0-2.8) Lipase (23-300) U/L Imaging Data Chest x-ray: Radiologist's Impression: [address] [address] XRay Report Signed Patient: Che Hickey MR#: [id number] : 1955 Acct:[id number] Age/Sex: 66 / F Date of Service: 12/14/21 Loc: ED Accession Number: [id number] ?? Procedure: XR chest 1V Ordering Provider: Bisi Babcock MD PROCEDURE:? XR CHEST 1V ? INDICATIONS:? chest pain ? TECHNIQUE:? One view of the chest was acquired.? ? COMPARISON:? Merged With [facility], CR, XR CHEST 2V, 08/28/2019, 9:49. ? FINDINGS:? ? Surgical changes and devices:? None.? ? Lungs and pleura:? Lungs are clear.? No pleural effusions or pneumothorax.? ? Mediastinum:? Mediastinal contours appear normal.? Heart size is normal.? Atherosclerotic vascular calcification noted in the aortic arch. ? Bones and chest wall:? No suspicious bony lesions.? Overlying soft tissues appear unremarkable.? ? IMPRESSION:? No acute cardiopulmonary findings ? ? ? Approved by: Brendan Mcfarlane M.D. on 12/14/2021 at 16:05? ECG Data Attestation: I personally reviewed and interpreted this ECG as follows: Interpretation: Sinus rhythm Ventricular rate is 77 Normal axis Normal QRS LVH No ST T wave changes MDM Narrative Medical decision making narrative: Blood pressure improved to a systolic in the 140s without any specific antihypertensive medication. Has minimal swelling in her lower extremities and no swelling in her hands. EKG shows no acute ischemic changes. Troponins neg ative x2. Chest x-ray shows no signs of heart failure. Patient clinically not heart failure. Low suspicion for intracranial hemorrhage given her history and physical exam. Had a discussion with the patient regarding her medications and her home blood pressures. She has been taking them at home and the lowest blood pressure that is recorded as 140 over 80s with majority being in the 160s and 1 70s over 90s. I do feel the patient would benefit from a 2nd antihypertensive medication. Her heart rates in the 60s with feel increasing her metoprolol would not be appropriate +she is already on 50 mg a day. Will start hydrochlorothiazide as this may help with some of the swelling that she is h aving. She was given a dose here in the emergency department and will start taking it on a daily basis starting tomorrow. I also informed her to continue to take her blood pressure at home and contact her primary doctor for a follow- up. She was given return precautions. She expressed understanding and agreement. Discharge Plan Departure Patient Disposition: Home Clinical Impression: HTN (hypertension) Instructions: DI for High Blood Pressure Activity Restrictions/Additional Instructions: Continue to take all of your medication as directed. We are going to had a new blood pressure medicine today. Continue to take your blood pressure at home as directed. Contact your primary doctor for a follow-up. Return to the emergency department for any new or worsening symptoms. Prescriptions: New hydrochlorothiazide 25 mg tablet 25 mg PO QAM Qty: 30 0RF No Action metoprolol succinate 50 mg tablet extended release 24 hr 50 mg PO QAM Qty: 90 1RF meloxicam 15 mg tablet 15 mg PO DAILY Qty: 30 0RF Rx Instructions: PT WILL NEED TO BE SEEN BEFORE NEXT RENEWAL 08/20/21 11/18/21 cholecalciferol (vitamin D3) 50 mcg (2,000 unit) capsule 50 mcg PO DAILY 0RF tizanidine 4 mg Capsule 4 mg PO TID PRN (Reason: Muscle Spasm) 0RF Referrals: Brian Lowe MD [Primary Care Provider] -
[2021-12-14 20:01] LABS: Troponin I < 0.012 ng/mL (0.01-0.034)
[2021-12-14] MEDS: hydroCHLOROthiazide 25 MG TABLET PO (21:01)
== END 2021-12-14 21:05 | disposition home or self-care (01) ==
PROVIDERS: Emergency Medicine; Emergency Provider Emergency Medicine; PCP Student in an Organized Health Care Education/Training Program
DX: I10 Essential (primary) hypertension (principal); Z79.899 Other long term (current) drug therapy
CPT/HCPCS: 36415; 71045; 80053; 82550; 83690; 83735; 83880; 84484; 85025; 93005; 99284

== ENCOUNTER → 2022-12-25 09:54 | Outpatient (CLI) | payer OTHER, MEDICAID, SELFPAY ==
[2022-11-03 15:50] VITALS: BMI 38.2
== END ==
PROVIDERS: PCP Student in an Organized Health Care Education/Training Program; Referring Provider Student in an Organized Health Care Education/Training Program; Visit Provider Surgery
DX: I87.2 Venous insufficiency (chronic) (peripheral) (principal); L97.821 Non-pressure chronic ulcer of other part of left lower leg limited to breakdown of skin; L97.811 Non-pressure chronic ulcer of other part of right lower leg limited to breakdown of skin; G60.9 Hereditary and idiopathic neuropathy, unspecified; R60.0 Localized edema; R21 Rash and other nonspecific skin eruption
CPT/HCPCS: 87070; 87075; 87077; 87147; 87186; 87205; 99203; 99215

== ENCOUNTER → 2022-12-30 15:28 | Outpatient (CLI) | payer OTHER, MEDICAID, SELFPAY ==
[2022-11-03 15:50] VITALS: BMI 38.2
== END ==
PROVIDERS: PCP Student in an Organized Health Care Education/Training Program; Referring Provider Student in an Organized Health Care Education/Training Program; Visit Provider Surgery
DX: I87.2 Venous insufficiency (chronic) (peripheral) (principal); L97.811 Non-pressure chronic ulcer of other part of right lower leg limited to breakdown of skin; L97.821 Non-pressure chronic ulcer of other part of left lower leg limited to breakdown of skin; R60.0 Localized edema; R21 Rash and other nonspecific skin eruption; L53.9 Erythematous condition, unspecified; L08.9 Local infection of the skin and subcutaneous tissue, unspecified
CPT/HCPCS: 99213

== ENCOUNTER → 2023-01-07 14:35 | Outpatient (CLI) | payer OTHER, MEDICAID, SELFPAY ==
[2022-11-03 15:50] VITALS: BMI 38.2
== END ==
PROVIDERS: PCP Student in an Organized Health Care Education/Training Program; Referring Provider Student in an Organized Health Care Education/Training Program; Visit Provider Surgery
DX: I87.2 Venous insufficiency (chronic) (peripheral) (principal)
CPT/HCPCS: 99213

== ENCOUNTER → 2023-01-21 14:56 | Outpatient (CLI) | payer OTHER, MEDICAID, SELFPAY ==
[2022-11-03 15:50] VITALS: BMI 38.2
== END ==
PROVIDERS: PCP Student in an Organized Health Care Education/Training Program; Referring Provider Student in an Organized Health Care Education/Training Program; Visit Provider Surgery
DX: I87.2 Venous insufficiency (chronic) (peripheral) (principal)
CPT/HCPCS: 99212; 99213

== ENCOUNTER → 2023-07-02 08:55 | Outpatient (CLI) | payer OTHER, MEDICAID, SELFPAY ==
[2022-11-03 15:50] VITALS: BMI 38.2
[2023-07-02 10:00] LABS: Add Manual Diff / Slide Review NO; Basophils Absolute Auto 0 /uL (0-100); Basophils Percent Auto 0.4 % (0-2); Eosinophils Absolute Auto 100 /uL (0-450); Eosinophils Percent Auto 1.2 % (2-4); Hematocrit 41.2 % (36-46); Hemoglobin 14.3 g/dL (12.0-16.0); Lymphocytes Absolute Auto 1700 /uL (1100-4500); Lymphocytes Percent Auto 20.5 % (25-40); Mean Corpuscular HGB Conc 34.9 % (30-36); Mean Corpuscular Hemoglobin 30.9 PG (26-34); Mean Corpuscular Volume 88.5 fL (80-100); Monocytes Absolute Auto 300 /uL (0-900); Monocytes Percent Auto 4.2 % (3-14); Neutrophils Absolute Auto 6000 /uL (1500-7000); Neutrophils Percent Auto 73.7 % (50-75); Platelet Count 259 X10^3/uL (150-400); Red Blood Cell Count 4.65 X10^6/uL (4.0-5.2); Red Cell Distribution Width 12.6 % (11.6-14.8); White Blood Cell Count 8.2 X10^3/uL (4.5-11.0)
[2023-07-02 10:12] LABS: Alanine Aminotransferase 24 IU/L (<35); Albumin Globulin Ratio 1.1 (1.0-2.8); Alkaline Phosphatase 63 U/L (38-126); Aspartate Aminotransferase 26 IU/L (14-36); BUN Creatinine Ratio 31.7 (6-22); Bilirubin Total 0.5 mg/dL (0.2-1.3); Blood Urea Nitrogen 19 mg/dL (7-17); Calcium 9.5 mg/dL (8.4-10.2); Carbon Dioxide 27 mmol/L (22-32); Chloride 100 mmol/L (98-107); Cholesterol 192 mg/dL (140-199); Estimated Glomerular Filt Rate > 60 mL/min (>60); Globulin 3.6 g/dL (1.7-4.1); Glucose 144 mg/dL (80-110); HDL Cholesterol 38 mg/dL (40-60); HEMOLYSIS < 15 (0-50); LDL Cholesterol Calculated 122 mg/dL (<100); Potassium 3.7 mmol/L (3.4-5.1); Sodium 137 mmol/L (137-145); Total Protein 7.6 g/dL (6.3-8.2); Triglycerides 159 mg/dL (35-150)
[2023-07-02 10:20] LABS: Hemoglobin A1C% w Est Avg Glu 5.5 % (4.0-6.0)
[2023-07-02 10:26] LABS: Erythrocyte Sedimentation Rate 34 MM/HR (0-20)
[2023-07-02 11:00] LABS: Vitamin B12 694 pg/mL (239-931)
[2023-07-02 11:02] LABS: Thyroid Stimulating Hormone 1.49 uIU/mL (0.47-4.68)
[2023-07-02 17:25] LABS: HIV 1 & 2 Ab/Ag 4th Gen Combo NEGATIVE (NEGATIVE); Hep C Virus Ab w/Reflex Quant NEGATIVE s/c (NEGATIVE)
[2023-07-06 13:09] LABS: Albumin 3.5 g/dL (2.9-4.4); Alpha-1-Globulin 0.2 g/dL (0.0-0.4); Alpha-2-Globulin 0.7 g/dL (0.4-1.0); Gamma Globulin 1.2 g/dL (0.4-1.8); Globulin Total 3.4 g/dL (2.2-3.9); Protein, Total 6.9 g/dL (6.0-8.5)
[2023-07-09 13:10] LABS: ANA Screen, IFA Negative (.)
== END ==
PROVIDERS: PCP Family Medicine; Referring Provider Family Medicine; Visit Provider Family Medicine
DX: Z00.00 Encounter for general adult medical examination without abnormal findings (principal); I10 Essential (primary) hypertension; Z11.4 Encounter for screening for human immunodeficiency virus [HIV]; G62.9 Polyneuropathy, unspecified; R60.9 Edema, unspecified; E78.00 Pure hypercholesterolemia, unspecified; Z13.1 Encounter for screening for diabetes mellitus; Z11.59 Encounter for screening for other viral diseases
CPT/HCPCS: 36415; 80053; 80061; 82607; 83036; 84155; 84165; 84443; 85025; 85651; 86038; 86803; 87389

== ENCOUNTER → 2024-03-28 12:17 | Outpatient (CLI) | payer OTHER, MEDICAID, SELFPAY ==
[2022-11-03 15:50] VITALS: BMI 38.2
--- NOTE | 2024-03-28 12:19 | DI.MG.S_ITS ---
BILATERAL DIGITAL SCREENING MAMMOGRAM 3D/2D WITH CAD: 03/28/2024 CLINICAL: Routine screening. Comparison is made to exams dated: 08/09/2020 mammogram, 04/22/2019 mammogram, and 04/05/2018 mammogram - [facility]. Both breasts are almost entirely fatty (category a/<25% glandular tissue). Current study was also evaluated with a Computer Aided Detection (CAD) system. No significant masses, calcifications, or other findings are seen in either breast. There has been no significant interval change. IMPRESSION: NEGATIVE There is no mammographic evidence of malignancy. A 1 year screening mammogram is recommended. Based on the Tyrer Cuzick model (a risk assessment model) the patient's lifetime risk is 3.4% and her 10 year risk is 1.7%. According to the ACR, ACS, and NCCN guidelines, an annual breast MRI exam along with mammogram is recommended if the patient's lifetime risk is 20% or greater. This exam was interpreted at Station ID: [id number]. NOTE: For mammograms, a report in lay terms will be sent to the patient. Approximately 15% of breast malignancies will not be visualized mammographically. In the management of a palpable breast mass, a negative mammogram must not discourage biopsy of a clinically suspicious lesion. Electronically Signed By: Raymon coy/ishan:03/28/2024 14:53:49 letter sent: Normal Exam ACR BI-RADS Category 1: Negative [id number]
--- NOTE | 2024-03-28 12:19 | DI.RAD.S_ITS ---
PROCEDURE: XR HIP W PEL IF DONE LT 2V INDICATIONS: evaluate for arthritis TECHNIQUE: AP pelvis with lateral view(s) of the left hip(s). COMPARISON: None. FINDINGS: Bones: Normal mineralization. There is severe, near circumferential left femoroacetabular joint space loss. Moderate to severe right femoroacetabular joint space loss. There is slight axial migration of both femoral heads and acetabular over coverage with moderate marginal spur formation. The right femoral head demonstrates sclerosis and subcortical cystic changes and both acetabula demonstrate subcortical sclerosis. The pelvic rings are intact. No suspicious bone lesions. Soft tissues: The visualized bowel gas pattern is normal. No suspicious soft tissue calcifications. IMPRESSION: Arthritic changes, left worse than right with components of rheumatoid and osteoarthritis. Dictated by: Maia Russell M.D. on 03/28/2024 at 16:46 Approved by: Maia Russell M.D. on 03/28/2024 at 16:48
--- NOTE | 2024-03-28 12:19 | DI.RAD.S_ITS ---
PROCEDURE: XR DEXA AXIAL SKELETON INDICATIONS: eval COMPARISON: None. FINDINGS: Lumbar Spine, L1, L3, and L4: Bone mineral density 1.673 g/cm2, T score 5.6, normal. Left Hip: Bone mineral density 1.114 g/cm2, T score 1.4, normal. Left Femoral Neck: Bone mineral density 1.069 g/cm2, T score 2.0, normal. Right Hip: Bone mineral density 1.109 g/cm2, T score 1.4, normal. Right Femoral Neck: Bone mineral density 0.990 g/cm2, T score 1.3, normal. Fracture Risk Calculation (when applicable): 10-year fracture risk of a major osteoporotic fracture 4.6 % and of a hip fracture less than 0.1%. (T score greater or equal to -1.0 to: NORMAL) (T score from -1.1 to -2.4: OSTEOPENIA) (T score less than or equal to -2.5: OSTEOPOROSIS) IMPRESSION: Normal bone mineral density. Follow-up guidelines as follows: Osteoporosis: Consider a repeat DEXA and Vertebral Fracture Assessment (VFA) exam in 2 years or sooner if medically necessary, to reassess this patient's status. Osteopenia: Consider a repeat DEXA in 2-3 years to reassess this patient's status, or if there is a new clinical indication. Normal: Consider a repeat DEXA in 5 years or sooner, or if there is a new clinical indication. All treatment decisions require clinical judgment and consideration of individual patient factors, including patient preferences, comorbidities, previous drug use, risk factors not captured in the FRAX model (e.g., frailty, falls, vitamin D deficiency, increased bone turnover, interval significant decline in bone density ) and possible under- or over-estimation of fracture risk by FRAX. In addition, the NOF Guide recommends that FDA-approved medical therapies be considered in postmenopausal women and men age >= 50 years with a: * Hip or vertebral (clinical or morphometric) fracture * T-score of <=-2.5 at the spine or hip * Ten-year fracture probability by FRAX of >= 3% for hip fracture or >=20% for major osteoporotic fracture. People with diagnosed cases of osteoporosis or at high risk for fracture should have regular bone mineral density tests. For patients eligible for Medicare, routine testing is allowed once every 2 years. The testing frequency can be increased to one year for patients who have rapidly progressing disease, those who are receiving or discontinuing medical therapy to restore bone mass, or have additional risk factors. Dictated by: Maia Russell M.D. on 03/28/2024 at 16:44 Approved by: Maia Russell M.D. on 03/28/2024 at 16:46
== END ==
LOC: RAD 12:19
PROVIDERS: PCP Family Medicine; Referring Provider Family Medicine; Visit Provider Family Medicine
DX: Z12.31 Encounter for screening mammogram for malignant neoplasm of breast; R92.313 Mammographic fatty tissue density, bilateral breasts; Z13.820 Encounter for screening for osteoporosis; Z78.0 Asymptomatic menopausal state; G62.9 Polyneuropathy, unspecified; M19.90 Unspecified osteoarthritis, unspecified site; Z90.710 Acquired absence of both cervix and uterus
CPT/HCPCS: 73502; 77063; 77067; 77080

== ENCOUNTER → 2024-04-01 14:50 | Outpatient (CLI) | payer OTHER, MEDICAID, SELFPAY ==
[2022-11-03 15:50] VITALS: BMI 38.2
[2024-04-01 15:44] LABS: C-Reactive Protein Quant 0.8 mg/dL (<1.0)
[2024-04-01 15:48] LABS: Rheumatoid Factor < 8.6 IU/mL (<12.0)
[2024-04-01 16:10] LABS: Erythrocyte Sedimentation Rate 41 MM/HR (0-20)
[2024-04-02 19:40] LABS: CCP Antibodies IgG/IgA 0 units (0-19)
[2024-04-06 16:36] LABS: ANA Screen, IFA Negative (.)
== END ==
PROVIDERS: PCP Family Medicine; Referring Provider Family Medicine; Visit Provider Family Medicine
DX: M16.0 Bilateral primary osteoarthritis of hip (principal); M25.552 Pain in left hip
CPT/HCPCS: 36415; 85651; 86038; 86140; 86200; 86430

== ENCOUNTER → 2024-11-21 09:19 | Outpatient (CLI) | payer OTHER, SELFPAY ==
[2022-11-03 15:50] VITALS: BMI 38.2
--- NOTE | 2024-11-21 | DI.RAD.S_ITS ---
PROCEDURE: FL JOINT INJECTION LARGE LT INDICATIONS: left hip pain COMPARISON: None. TECHNIQUE: The indications, alternatives, benefits, risks, and complications of the procedure were explained to the patient. Written informed consent was obtained and placed in the chart. The patient was placed in an appropriate position on the fluoroscopy table, and a site was chosen for percutaneous access under fluoroscopic guidance. The site was prepped and draped in a sterile fashion. Local anesthetic was administered using a 1% lidocaine solution. A hypodermic or spinal needle was then used to access the symptomatic joint. Intra-articular location of the needle tip was confirmed by injecting a small amount of contrast, followed by steroid administration. The needle was then withdrawn, and a bandage applied to the puncture site. FINDINGS: Joint injected: Left hip Medications injected: 4 mL of 40 mg/mL Kenalog and 0.5% Ropivacaine mixture. Patient's pain before injection: 9 out of 10. Patient's pain after injection: 6 out of 10. Complications: None. IMPRESSION: Successful fluoroscopically guided administration of steroid and anaesthetic solution into the left hip joint. Dictated by: Tamiko Romeo M.D. on 11/22/2024 at 10:29 Approved by: Tamiko Romeo M.D. on 11/22/2024 at 10:29
--- NOTE | 2024-11-21 09:23 | DI.RAD.S_ITS ---
PROCEDURE: XR KNEE LT 3V INDICATIONS: Left knee Pain TECHNIQUE: 3 views of the knee were acquired. COMPARISON: [facility], , XR KNEE RT 1TO2V, 08/23/2018, 15:43. FINDINGS: Bones: There are no osseous abnormalities. Joints: The tibialfemoral and patellofemoral joints show severe degeneration. There is mild lateral subluxation of patella and also mild tibial femoral subluxation. Soft tissues: Normal IMPRESSION: Severe degeneration. Patellofemoral and tibiofemoral subluxation Dictated by: Richardson Yusuf M.D. on 11/21/2024 at 11:20 Approved by: Richardson Yusuf M.D. on 11/21/2024 at 11:21
[2024-11-21] MEDS: TRIAMCINOLONE 40 MG/ML VIAL INTRA-ARTI (10:30)
[2024-11-21] MEDS: ROPIVACAINE 0.5% PF 5 MG/ML 20ML VIAL 20 ML INJ (10:30)
[2024-11-21] MEDS: LIDOCAINE 1% 20 ML INJ (10:30)
== END ==
PROVIDERS: PCP Family Medicine; Referring Provider Family Medicine; Visit Provider Family Medicine
DX: M25.552 Pain in left hip (principal); M17.12 Unilateral primary osteoarthritis, left knee; S83.012A Lateral subluxation of left patella, initial encounter; M25.562 Pain in left knee
CPT/HCPCS: 20610; 73562; 77002; Q9967

== ENCOUNTER → 2025-01-30 09:40 | Outpatient (CLI) | payer OTHER, SELFPAY ==
[2022-11-03 15:50] VITALS: BMI 38.2
[2025-01-30 10:48] LABS: Hematocrit 44.6 % (36-46); Hemoglobin 15.3 g/dL (12.0-16.0); Mean Corpuscular HGB Conc 34.3 % (30-36); Mean Corpuscular Hemoglobin 31.1 PG (26-34); Mean Corpuscular Volume 90.7 fL (80-100); Platelet Count 277 X10^3/uL (150-400); Red Blood Cell Count 4.92 X10^6/uL (4.0-5.2); Red Cell Distribution Width 12.9 % (11.6-14.8); White Blood Cell Count 7.6 X10^3/uL (4.5-11.0)
[2025-01-30 11:00] LABS: Alanine Aminotransferase 21 IU/L (<35); Albumin 4.5 g/dL (3.5-5.0); Albumin Globulin Ratio 1.5 (1.0-2.8); Alkaline Phosphatase 81 U/L (38-126); Aspartate Aminotransferase 25 IU/L (14-36); BUN Creatinine Ratio 34.1 (6-22); Bilirubin Total 0.6 mg/dL (0.2-1.3); Blood Urea Nitrogen 28 mg/dL (7-17); Calcium 9.9 mg/dL (8.4-10.2); Carbon Dioxide 23 mmol/L (22-32); Chloride 107 mmol/L (98-107); Cholesterol 218 mg/dL (140-199); Estimated Glomerular Filt Rate > 60 mL/min (>60); Glucose 85 mg/dL (70-99); HDL Cholesterol 44 mg/dL (40-60); HEMOLYSIS 22 (0-50); LDL Cholesterol Calculated 141 mg/dL (<100); Potassium 4.1 mmol/L (3.4-5.1); Sodium 142 mmol/L (137-145); Total Protein 7.5 g/dL (6.3-8.2); Triglycerides 163 mg/dL (35-150)
== END ==
PROVIDERS: PCP Family Medicine; Referring Provider Family Medicine; Visit Provider Family Medicine
DX: I10 Essential (primary) hypertension (principal)
CPT/HCPCS: 36415; 80053; 80061; 85027

== ENCOUNTER → 2025-07-13 13:46 | Outpatient (CLI) | payer OTHER, SELFPAY ==
[2022-11-03 15:50] VITALS: BMI 38.2
--- NOTE | 2025-07-13 13:46 | DI.MG.S_ITS ---
MM screening mammo BI: 07/13/2025. BI-RADS: 1 CLINICAL: 69-year old female for bilateral screening mammogram. Tyrer-Cuzick lifetime risk of 1.8%. No personal or first-degree family history of breast cancer. PRIOR EXAMS 03/28/2024, 08/09/2020, 04/22/2019, 04/05/2018. MAMMOGRAPHY TECHNIQUE: 2D and 3D (tomosynthesis) digital mammographic views obtained, with additional images as needed for full coverage. Current study was also evaluated with a Computer Aided Detection (CAD) system. DENSITY A. The breasts are almost entirely fatty. MAMMOGRAPHY FINDINGS Bilateral: No suspicious mass, asymmetry, microcalcification, or other abnormality seen. IMPRESSION: * No evidence of malignancy. RECOMMENDATIONS Bilateral * Annual screening mammography. OVERALL ASSESSMENT CATEGORY BI-RADS-1: Negative. The [employer] recommends annual screening mammography beginning at age 40 for women with average risk of breast cancer. ELECTRONICALLY SIGNED: Domingo Soto M.D. on 07/14/2025 at 07:03:24 AM PT Interpreting Station ID: [id number]
== END ==
LOC: MAMMO 13:46
PROVIDERS: PCP Family Medicine; Referring Provider Family Medicine; Visit Provider Family Medicine
DX: Z12.31 Encounter for screening mammogram for malignant neoplasm of breast (principal); R92.313 Mammographic fatty tissue density, bilateral breasts
CPT/HCPCS: 77063; 77067

== ENCOUNTER → 2025-07-27 10:06 | Outpatient (CLI) | payer OTHER, SELFPAY ==
[2022-11-03 15:50] VITALS: BMI 38.2
[2025-07-27 11:10] LABS: Hematocrit 46.2 % (36-46); Hemoglobin 15.6 g/dL (12.0-16.0); Mean Corpuscular HGB Conc 33.8 % (30-36); Mean Corpuscular Hemoglobin 30.3 PG (26-34); Mean Corpuscular Volume 89.8 fL (80-100); Platelet Count 301 X10^3/uL (150-400)
[2025-07-27 11:51] LABS: Alanine Aminotransferase 22 IU/L (<35); Albumin 4.7 g/dL (3.5-5.0); Albumin Globulin Ratio 1.4 (1.0-2.8); Alkaline Phosphatase 87 U/L (38-126); Blood Urea Nitrogen 21 mg/dL (7-17); Calcium 9.8 mg/dL (8.4-10.2); Carbon Dioxide 21 mmol/L (22-32); Chloride 103 mmol/L (98-107); Cholesterol 229 mg/dL (140-199); Estimated Glomerular Filt Rate > 60 mL/min (>60); Globulin 3.4 g/dL (1.7-4.1); Glucose 90 mg/dL (70-99); HDL Cholesterol 47 mg/dL (40-60); HEMOLYSIS 28 (0-50); Potassium 3.9 mmol/L (3.4-5.1); Sodium 138 mmol/L (137-145); Total Protein 8.1 g/dL (6.3-8.2); Triglycerides 190 mg/dL (35-150)
== END ==
PROVIDERS: PCP Family Medicine; Referring Provider Family Medicine; Visit Provider Family Medicine
DX: I10 Essential (primary) hypertension (principal); E78.00 Pure hypercholesterolemia, unspecified
CPT/HCPCS: 36415; 80053; 80061; 85027